=== PATIENT | female | born 1955 | race Caucasian/White ===

== ENCOUNTER 2016-12-28 07:08 | Emergency (ER) | payer MEDICARE, OTHER ==
[~2016-12-28] VITALS: Ht 162.6 cm; Wt 94.0 kg
[~2016-12-28 07:08] MED LIST: ABIL5TAB6 PO; BUPR150T3 PO; BUSP30TA PO; CYAN100017 PO; D3400CAP PO; DIVA500 PO; FLUT1INH; FLUT50SP EACH NARE; FOLI1 PO; HYDR-3533 PO; LEVA750T9 PO; OMEP20CA5 PO; PARO10TA PO; SPIR25TA PO; VENTAER INH
[2016-12-28 07:13] VITALS: BP 119/69; PULSE 84; RESP 17; TEMP 98.2; O2SAT 97
--- NOTE | 2016-12-28 07:43 | PD ---
HPI Chief Complaint: Back/ Neck Pain or Injury Time Seen by Provider: 07:43 Travel History International Travel<30 days: No Contact w/Intl Traveler<30days: No Traveled to known affect area: No History of Present Illness HPI 61-year-old female came to the emergency room with history of tripping and falling backward on her cat at 2 this morning. She landed on her coffee table which she ended up breaking. She was able to get up and go back to the bed. But since then she has severe pain on the left flank and the back aspect. She has trouble taking a deep breath or coughing because of the pain. She did not hit her head. Patient is not on any blood thinners. She does appear to be in discomfort. Vital signs are stable. She drove here by herself. [facility] Past Medical History Narrative Medical List of her past medical, surgical, social and family history was reviewed from the nursing note. Asthma: Yes Bipolar Disorder: Yes Anxiety: Yes Depression: Yes COPD: Yes Diabetes: No Diminished Hearing: No Gastrointestinal Disorders: Yes (STOMACH ULCERS) GERD: Yes Hiatal Hernia: Yes Immunizations Current: No Pneumonia: Yes Menopausal: Yes : 8 Para: 3 Miscarriage: 2 : 3 Past Surgical History Abdominal Surgery: Yes (20# MESENTERIC TUMOR REMOVED WITH INCIDENTAL HYSTERECTOMY/OOPHRECTOMY) Appendectomy: Yes Section: Yes (1984) Eye Surgery: Yes (TUMOR BEHIND R-EYE REMOVED AGE 1) Gynecologic Surgery: Yes Hysterectomy: Yes Joint Replacement: Yes (BILATERAL KNEES) Other Surgery: Yes (GASTRIC BYPASS, HERNIA REPAIR WITH MESH) Social History Alcohol Use: No Tobacco Use: Yes (~1/2 PPD) Substance Use: No Allergies-Medications (Allergen,Severity, Reaction): Coded Allergies: Bee Sting (Verified Allergy, Severe, ANAPHYLAXIS, 12/28/16) Comments List of her allergies reviewed from the nursing note. Reported Meds & Prescriptions Reported Meds & Active Scripts Active Ibuprofen 600 Mg Tab 600 Mg PO Q6H PRN Hydrocodone-Acetaminophen 7.5-300 Mg Tab 1 Tab PO Q6H PRN Reported Latuda (Lurasidone) 20 Mg Tab 20 Mg PO DAILY Paxil (Paroxetine HCl) 40 Mg Tablet 40 Mg PO DAILY Latuda (Lurasidone) 20 Mg Tab 20 Mg PO DAILY Divalproex DR (Divalproex Sodium) 500 Mg Tabdr 500 Mg PO BID Omeprazole 20 Mg Tab 20 Mg PO DAILY Vistaril (Hydroxyzine Pamoate) 25 Mg Cap 25 Mg PO HS Divalproex DR (Divalproex Sodium) 250 Mg Tabdr 250 Mg PO HS Buspirone (Buspirone HCl) 10 Mg Tab 20 Mg PO TID Bupropion HCl ER 24 HR (Bupropion HCl) 150 Mg Tab 150 Mg PO DAILY Narrative Medication List of her home medications reviewed from the nursing note. Review of Systems Except as stated in HPI: all other systems reviewed are Neg Physical Exam Narrative GENERAL: Awake, alert, obese, moderate distress SKIN: Focused skin assessment warm/dry. Contusion on the left flank area with point tenderness. HEAD: Atraumatic. Normocephalic. EYES: Pupils equal and round. No scleral icterus. No injection or drainage. ENT: No nasal bleeding or discharge. Mucous membranes pink and moist. NECK: Trachea midline. No JVD. CARDIOVASCULAR: Regular rate and rhythm. No murmur appreciated. RESPIRATORY: No accessory muscle use. Clear to auscultation. Breath sounds equal bilaterally. GASTROINTESTINAL: Abdomen soft, non-tender, nondistended. Hepatic and splenic margins not palpable. MUSCULOSKELETAL: No obvious deformities. No clubbing. No cyanosis. No edema. No point tenderness or step-offs on the spine palpation. NEUROLOGICAL: Awake and alert. No obvious cranial nerve deficits. Motor grossly within normal limits. Normal speech. PSYCHIATRIC: Appropriate mood and affect; insight and judgment normal. Data Data Last Documented VS Vital Signs Date Time Temp Pulse Resp B/P Pulse Ox O2 Delivery O2 Flow Rate FiO2 12/28/16 07:13 98.2 84 17 119/69 97 Orders Acetamin-Hydrocod 325-5 Mg (Reseda 5-325 (12/28/16 08:00) Ibuprofen (Motrin) (12/28/16 08:00) Urinalysis - C+S If Indicated (12/28/16 07:49) Ribs, Uni (W/Exp Cxr-Min 3vw) (12/28/16 ) Ct Thorax/ Chest Wo Iv Contras (12/28/16 ) Ct Abd/Pel W/O Iv Contrast (12/28/16 ) Resp Incentive Spirometry (12/28/16 ) Labs Laboratory Tests Test 12/28/16 07:59 Urine Collection Type CLEAN CATCH Urine Color YELLOW Urine Turbidity CLEAR Urine pH 5.5 Urine Specific Ebony 1.019 Urine Protein NEG mg/dL Urine Glucose (UA) NEG mg/dL Urine Ketones 15 mg/dL Urine Occult Blood LARGE Urine Nitrite NEG Urine Bilirubin NEG Urine Leukocyte Esterase NEG Urine RBC 15-19 /hpf Urine WBC 3-5 /hpf Urine Squamous Epithelial > 8 /hpf Cells Urine Bacteria OCC /hpf Microscopic Urinalysis Comment CULT NOT INDICATED Urine Collection Time 07:59 MDM Medical Decision Making Medical Screen Exam Complete: Yes Emergency Medical Condition: Yes Medical Record Reviewed: Yes Differential Diagnosis Rib fracture, renal injury, lung contusion, pneumothorax Narrative Course 8:20 AM I have ordered chest x-ray and rib series. Awaiting for the x-rays to be done and resulted. I've also ordered a UA to look for any hematuria since the bruising is right on top of the left kidney. I medicated her for pain but because I'm giving her hydrocodone of asked her to call somebody come and pick her up. She is working on that. 8:51 AM UA came back with large amount of blood. I have ordered a CT scan of her chest and abdomen and pelvis. Thing for the CT to be done and resulted. 10:[address] scan shows some incidental finding but as a result of the injury patient has left posterior mildly displaced 10th, 11th and 12th rib fracture. Patient seems to be in somewhat of a pain control when she doesn't move too much. I just went back and reassessed her and told her the nature of her injuries. Also explained to her regarding the recommendations and precaution she should use at home. Patient understood and I answered all her questions to the best of my ability. I'm comfortable discharging her home at this point. Procedures EKG Prior to Arrival: No Diagnosis Primary Impression: Fall Qualified Code: W19.XXXA - Fall, initial encounter Additional Impressions: Ribs, multiple fractures Qualified Code: S22.42XA - Closed fracture of multiple ribs of left side, initial encounter Needs smoking cessation education Referrals: Primary Care Physician 3 days Additional Instructions: Please return to the ER if the condition worsens or any other new concerns. Otherwise follow-up with your primary care on Sunday. Use the medication given to you for pain control. Do not drive or operate heavy machinery while using the pain medication since they will make you groggy. Brace your chest with a cushion or a pillow every time you cough or sneeze. If he suddenly get short of breath you need to come to the emergency room immediately. Use the incentive spirometer given to you every 15-20 minutes. The more frequently use less would be the chances for you to develop pneumonia. Your CAT scan of the abdomen had some incidental findings. You have a 3.5 cm x 2.5 cm tumor on your left adrenal gland. You also have a 2.5 cm density in your liver. Please have your primary care repeat a CAT scan in 6-12 months outpatient. Med/Other Pt SpecificInfo: Prescription(s) given Scripts Ibuprofen 600 Mg [id number] Mg PO Q6H PRN (Pain/Inflammation) #40 TAB Ref 0 Prov:Frank Pires MD 12/28/16 Hydrocodone-Acetaminophen 7.5-300 Mg Tab1 Tab PO Q6H PRN (PAIN) #20 TAB Ref 0 Prov:Frank Pires MD 12/28/16 Disposition: 01 DISCHARGE HOME Condition: Stable Frank Pires MD Dec 28, 2016 07:43
[2016-12-28] MEDS ORDERED: OMEP20TA PO (07:50)
[2016-12-28] MEDS ORDERED: LURA20TA PO (07:50)
[2016-12-28] MEDS ORDERED: DIVA250T PO (07:50)
[2016-12-28] MEDS ORDERED: BUSP10TA PO (07:50)
[2016-12-28] MEDS ORDERED: BUPR150T3 PO (07:50)
[2016-12-28] MEDS ORDERED: VIST25CA PO (07:50)
[2016-12-28] MEDS ORDERED: PAXI40TA8 PO (07:50)
[2016-12-28] MEDS ORDERED: DIVA500T PO (07:50)
[2016-12-28] MEDS ORDERED: IBUPROFEN 600 MG TAB PO ONE (08:00)
[2016-12-28] MEDS ORDERED: ACETAMINOPHEN/HYDROcodone 325 MG/5 MG TAB PO ONE (08:00)
[2016-12-28 08:14] LABS: BLOOD, URINE LARGE (NEG); GLUCOSE,URINE NEG (NEG); KETONE, URINE 15 mg/dL (NEG); NITRITE,URINE NEG (NEG); PH, URINE 5.5 (5.0-8.5)
[2016-12-28 08:25] LABS: METHOD OF COLLECTION CLEAN CATCH; RBC, URINE 15-19 /hpf (0-3); SQUAMOUS EPITHELIAL CELL URINE > 8 /hpf (0-5); URINE COLOR YELLOW (YELLW/STRAW)
[2016-12-28 08:26] LABS: BACTERIA, URINE OCC /hpf; COMMENT (UR) CULT NOT INDICATED; CULTURE IF INDICATED CULT NOT INDICATED
--- NOTE | 2016-12-28 09:20 | RADRPT ---
EXAM DATE/TIME: 12/28/2016 08:23 [facility] COMPARISON: No previous studies available for comparison. INDICATIONS : Left posterior rib pain post fall onto corner of coffee table. MEDICAL HISTORY : Chronic obstructive pulmonary disease. Hiatal hernia. Ulcers. Asthma. Pneumonia. SURGICAL HISTORY : Appendectomy. Gastric bypass. section. Hernia repair. Bilateral knee replacements. Hysterect edith. ENCOUNTER: Initial ACUITY: 1 day PAIN SCORE: 8/10 LOCATION: Left flank ribs FINDINGS: Multiple views of the left ribs were performed. There is no evidence of displaced fracture. No dest ructive lesions or areas of periosteal thickening are seen. Expiratory view of the chest is negative for pneumothorax. Air space disease characteristic of mild atelectasis is seen in the left base. Th e mediastinal structures are midline. CONCLUSION: Mild left basilar atelectasis. No evidence of displaced rib fracture. Roque Costa MD on December 28, 2016 at 9:16 Board Certified Radiologist. This report was verified electronically.
--- NOTE | 2016-12-28 09:49 | RADRPT ---
EXAM DATE/TIME: 12/28/2016 08:45 [facility] COMPARISON: CT ABDOMEN & PELVIS W CONTRAST, November 18, 2015, 17:47. INDICATIONS : Trauma. Left flank and back pain post fall. ORAL CONTRAST: No oral contrast ingested. RADIATION DOSE: 16.26 CTDIvol (mGy) ; Combined studies - Thorax/Abdomen/Pelvis MEDICAL HISTORY : Hernia, hiatal. Gastroesophageal reflux disease. Chronic obstructive pulmonary disease. SURGICAL HISTORY : Appendectomy. section.Hysterectomy.Mesenteric tumor. Oophorectomy. ENCOUNTER: Initial ACUITY: 1 day PAIN SCALE: 9/10 LOCATION: Left flank back TECHNIQUE: Volumetric scanning of the abdomen and pelvis was performed. Using automated exposure control and ad justment of the mA and/or kV according to patient size, radiation dose was kept as low as reasonably achievable to obtain optimal diagnostic quality images. DICOM format image data is available electro nically for review and comparison. FINDINGS: LOWER LUNGS: The visualized lower lungs are clear. LIVER: There is a stable 2.5 cm low density lesion within the left lobe of the liver near the dome. There i s no dilation of the biliary tree. No calcified gallstones. SPLEEN: Normal size without lesion. PANCREAS: Within normal limits. KIDNEYS: Normal in size and shape. There is no mass, stone, or hydronephrosis. ADRENAL GLANDS: There is a 3.4 x 2.6 cm low density left adrenal mass consistent with probable adrenal adenoma. VASCULAR: There is no aortic aneurysm. BOWEL/MESENTERY: The stomach, small bowel, and colon demonstrate no acute abnormality. There is no free intraperitone al air or fluid. ABDOMINAL WALL: Midline ventral abdominal wall bulge is noted containing a portion of the transverse colon. RETROPERITONEUM: There is no lymphadenopathy. BLADDER: No wall thickening or mass. REPRODUCTIVE: Within normal limits. INGUINAL: There is no lymphadenopathy or hernia. MUSCULOSKELETAL: Within normal limits for patient age. CONCLUSION: 1. No intra-abdominal trauma. 2. 3.4 x 2.6 cm left adrenal nodule changes with probable adrenal adenoma. 3. Stable low density lesion within the left hepatic lobe near the dome measuring 2.5 cm which is non specific. 4. Midline ventral abdominal wall bulge containing a portion of transverse colon. Isiah Galindo MD on December 28, 2016 at 9:40 Board Certified Radiologist. This report was verified electronically.
--- NOTE | 2016-12-28 10:00 | RADRPT ---
EXAM DATE/TIME: 12/28/2016 08:45 [facility] COMPARISON: No previous studies available for comparison. INDICATIONS : Trauma. Fall. Left chest and back pain. RADIATION DOSE: 16.26 CTDIvol (mGy) ; Combined studies - Thorax/Abdomen/Pelvis MEDICAL HISTORY : Hernia, hiatal. Chronic obstructive pulmonary disease. Gastroesophageal reflux disease. SURGICAL HISTORY : Hysterectomy. section. Appendectomy. Mesenteric tumor. ENCOUNTER: Initial ACUITY: 1 day PAIN SCALE: 9/10 LOCATION: Left chest back TECHNIQUE: Volumetric scanning of the chest was performed. Using automated exposure control and adjustment of t he mA and/or kV according to patient size, radiation dose was kept as low as reasonably achievable to obtain optimal diagnostic quality images. DICOM format image data is available electronically for r eview and comparison. FINDINGS: There are acute mildly displaced fractures involving the posterior aspects of the left tenth, elevent h, and twelfth ribs. Posterior bibasilar atelectasis is noted. Minimal bullous change is noted with in the right upper lung field. No pneumothorax is noted. The heart is enlarged. Coronary artery pal cifications are noted. No mediastinal hematoma is noted. No mediastinal, hilar, or axillary lymphad enopathy is noted. No pleural effusion is noted. A left adrenal nodule is noted and will be described in detail in the CT of the abdomen report. Degenerative changes and scoliosis of the thoracic spine are noted. CONCLUSION: 1. Acute mildly displaced fractures involving the posterior aspects of the left tenth, eleventh and t welfth ribs. 2. Posterior atelectatic changes within the lung bases. 3. Bullous change within the right upper lung. 4. Cardiomegaly and coronary artery calcifications. 5. Left adrenal nodule will be described in detail in the CT of the abdomen. 6. Degenerative changes and scoliosis of the thoracic spine. Isiah Galindo MD on December 28, 2016 at 9:34 Board Certified Radiologist. This report was verified electronically.
[2016-12-28] MEDS ORDERED: HYDR-2376 PO (10:33)
[2016-12-28] MEDS ORDERED: IBUP-232 PO (10:33)
== END 2016-12-28 10:59 | disposition home or self-care (01) ==
LOC: PHED 07:08
DX: S22.42XA Multiple fractures of ribs, left side, initial encounter for closed fracture (principal); W01.0XXA Fall on same level from slipping, tripping and stumbling without subsequent striking against object, initial encounter; J44.9 Chronic obstructive pulmonary disease, unspecified; K21.9 Gastro-esophageal reflux disease without esophagitis; Z87.19 Personal history of other diseases of the digestive system
CPT/HCPCS: 71101; 71250; 74176; 81001; 94150; 99285

== ENCOUNTER 2017-02-13 10:29 | Day surgery (SDC) | payer MEDICARE, OTHER ==
[~2017-02-13] VITALS: Ht 162.6 cm; Wt 87.7 kg
[~2017-02-13 10:29] MED LIST changes: -ABIL5TAB6 PO; +BUSP10TA PO; -BUSP30TA PO; -CYAN100017 PO; -D3400CAP PO; +DIVA250T PO; -DIVA500 PO; +DIVA500T PO; -FLUT1INH; -FLUT50SP EACH NARE; -FOLI1 PO; +HYDR-2376 PO; -HYDR-3533 PO; +IBUP-232 PO; -LEVA750T9 PO; +LURA20TA PO; -OMEP20CA5 PO; +OMEP20TA PO; -PARO10TA PO; +PAXI40TA8 PO; -SPIR25TA PO; -VENTAER INH; +VIST25CA PO
[2017-02-13] MEDS ORDERED: ASPIRIN 81 MG CHEW TAB PO SCH (11:30)
[2017-02-13 11:34] VITALS: BP 143/81; PULSE 72; RESP 18; TEMP 98.2; O2SAT 96
[2017-02-13 11:40] LABS: AUTOMATED NEUTROPHIL # 2.8 TH/MM3 (1.8-7.7); BASOPHIL # 0.1 TH/MM3 (0-0.2); BASOPHIL % 1.1 % (0.0-2.0); EOSINOPHIL # 0.1 TH/MM3 (0-0.4); EOSINOPHIL % 1.8 % (0.0-4.0); HEMATOCRIT 39.8 % (35.0-46.0); HEMO FLAGS DIFF FINAL; LYMPH % 46.7 % (9.0-44.0); MEAN CELL VOLUME 90.5 FL (80.0-100.0); MEAN CORPUSCULAR HEMOGLOBIN 31.3 PG (27.0-34.0); MEAN CORPUSCULAR HGB CONC 34.6 % (32.0-36.0); MONO % 6.9 % (0.0-8.0); NEUT % 43.5 % (16.0-70.0); PLATELET COUNT 215 TH/MM3 (150-450); RED BLOOD COUNT 4.39 MIL/MM3 (4.00-5.30); WHITE BLOOD COUNT 6.4 TH/MM3 (4.0-11.0)
[2017-02-13] MEDS ORDERED: ABIL5TAB7 PO (11:47)
[2017-02-13] MEDS ORDERED: DEPA500T3 PO (11:47)
[2017-02-13] MEDS ORDERED: VENTAER INH (11:47)
[2017-02-13 11:52] LABS: APTT (PATIENT) 28.5 SEC (24.3-30.1); INTERNATIONAL NORMALIZED RATIO 0.9 RATIO; PROTHROMBIN TIME - PATIENT 10.3 SEC (9.8-11.6)
[2017-02-13 12:05] LABS: BICARBONATE 29.1 MEQ/L (21.0-32.0)
[2017-02-13] MEDS ORDERED: HEPARIN-NS/PF INJ 500 ML ONE (12:06)
[2017-02-13 12:18] LABS: POTASSIUM 5.4 MEQ/L (3.5-5.1)
[2017-02-13] MEDS ORDERED: MIDAZOLAM HCL 2 MG/2 ML VIAL ONE (12:35)
--- NOTE | 2017-02-13 13:29 | EKG ---
Date Performed: 02/13/2017 Time Performed: 11:42:24 PTAGE: 61 years EKG: Sinus rhythm . Normal ECG Compared to prior tracing no significant change PREVIOUS TRACING : 05/09/2003 22.59 DOCTOR: Javon Esquivel Interpretating Date/Time 02/13/2017 13:28:45
[2017-02-13] MEDS ORDERED: BACITRACIN OINT 0.9 GM PKT TOP ONE (13:30)
[2017-02-13] MEDS ORDERED: SODIUM CHLORIDE 0.9% FLUSH 10 ML FLUSH PRN (13:30)
[2017-02-13] MEDS ORDERED: MISC INFORMATION XX ONE (13:30)
--- NOTE | 2017-02-13 13:39 | CATHPROC ---
[employer] HIS Report Study Information Study Number Admission Scheduled Start Study Start [id number] Feb 13 2017 10:29AM 02/13/2017 Feb 13 2017 12:14PM [facility] Cardiac Catheterization Admit Source Facility Department Other [facility] - Data Management Associate Physician and Clinical Staff Initial Zoran [employer] CookSofia Saravia RN Circulator Lawler, Barbara, RN Other Skyler VAZQUEZ, Kayode Recorder Mary Sinha RCIS TECH2 Recorder Sandra Low,(R) Scrub Will Kaba RCIS(BS) Procedures Performed Procedure Location (Site) Vessel Name Coronary Angiograms LCA Left Coronary Coronary Angiograms RCA Right Coronary LV Gram-hand inj. LV LV Ventricle Equipment Time Dish Carrier Description Size Mfg Part Number Used/Scraped CATHETER, FR5 SWAN CHANTAL 12:25 SILVA MONGE FR 5 [id number] *[id number] Used MONITOR TRANSDUCER, TRUWAVE [id number] 13:16 SILVA MONGE * Used W/STOCKCOCK *[id number] [id number] *[id number] *[id number] 13:16 MEDLINE IND[employer]RIES PACK, CCL CUSTOM * Used *[id number] 13:16 Haileo PACER PEN, SKIN DUAL W/ RULER * Used *[id number] 13:09 Propel IT MEDICAL SHEATH, FR4.5 PRELUDE 11CM FR 4.5 Used [id number] 13:11 Propel IT MEDICAL SHEATH, FR5.5 PRELUDE 11CM FR 5 [id number] Used [id number] 13:16 NAMIC MANIFOLD, 4 PORT * Used *[id number] 13:16 NYCOMED OMNIPAQUE, 350 MG, 150ML 150ML [id number] Used [id number] 13:16 [email or web address] BLANKET,WARM AIR CCL * Used *[id number] History: Current Medications Medication Dosage/Unit Route Frequency Last Date/Time Taken ASA History: Allergies Allergy Reaction Bee Sting History: Risk Factors Family History of Hypertension Dyslipidemia Previous IA Previous Heart Failure Premature CAD No Yes Yes No No Prior Valve Prior PCI Prior CABG Surgery No No No Cerebrovascular Peripheral Artery Chronic Lung On Dialysis Diabetes Disease Disease Disease No No No Yes No History: Symptoms/Diagnosis Selection Items Chest pain History: Stress Tests Stress or Imaging Studies Performed Yes Standard Exercise Stress Test No Stress Echo No Stress Test SPECT Stress Test SPECT Result Stress Test SPECT Ischemia Risk/Extent Yes Positive Intermediate Stress Test CMR No Cardiac CTA Coronary Calcium Score No No History: Other Current Smoker Method Packs a Day Years Used Pack Years Yes Cigarettes 1 50 50 Labs Hgb (g/dl) Hct (%) WBC (l/cumm) Platelets (thousands) 11.60-17.00 35.00-51.00 4.00-11.00 150.00-450.00 13.8 39.8 6.4 215 Glucose (mg/dl) BUN (mg/dl) Creatinine (mg/dl) BUN:Creatinine (1:x) 74.00-106.00 7.00-18.00 0.50-1.30 10.00-20.00 72 6 0.5 12 Na (meq/l) K (meq/l) Cl (meq/l) CO2 (mmol/L) Ca (mg/dl) 136.00-145.00 3.50-5.10 98.00-107.00 21.00-32.00 8.50-10.10 134 5.4 99 29.1 8.1 INR (PTT:PT) 0.90-1.10 0.9 CPK-MB (ng/ML) 0.50-3.60 Not Drawn Medication Medication Total Dose (Bolus/Oral) Medication Total Dosage/Unit 1% XYLOCAINE 20 mL Medications (Bolus/Oral) Medication Time Given Dosage/Unit Administered By Reason 1% XYLOCAINE 02/13/2017 1:06:04 PM 20 mL Zoran Valencia Patient arrived on 20 mL 1% XYLOCAINE given by Zoran Valencia in Right Groin via Subcutaneous. Orde red by Zoran Valencia. Medication (Drip) Medication Time Given Dosage/Unit Concentration/Unit Diluent (ml) Solution IV Solutions 02/13/2017 12:27:37 PM 0 mL (IV) 500 NaCl .9 Patient arrived on IV Solutions in Right Radial via Peripheral IV. Pump/Drip Flow = 20 ml/hr using Na Cl .9. Initial Case Assessment Cardiovascular HR Rhythm NIBP Chest Pain 72 nsr 134/78 0 Edema Present Skin color Skin None Normal Warm Circulatory - Right Pulses Dorsalis Pedis Femoral 3 2 Scale (0,1,2,3,4,d) Circulatory - Left Pulses Dorsalis Pedis Femoral 3 2 Scale (0,1,2,3,4,d) Neurological State Oriented to time-place- Alert Moves all extremities person Respiration - General Respiration Rate SpO2 (%) (B/min) 19 97 Final Case Assessment Cardiovascular HR Rhythm NIBP Chest Pain 97 nsr 147/76 0 Edema Present Skin color Skin None Normal Warm Circulatory - Right Pulses Dorsalis Pedis Femoral 3 2 Scale (0,1,2,3,4,d) Circulatory - Left Pulses Dorsalis Pedis Femoral 3 2 Scale (0,1,2,3,4,d) Neurological State Oriented to time-place- Alert Moves all extremities person Respiration - General Respiration Rate SpO2 (%) (B/min) 25 93 Chronological Log Time Study Chronological Log 12:14:26 Patient arrived via Bed. 12:16:01 Patient Name, D.O.B, / Armband Verified By R.N. 12:16:04 Consent signed by the physician and the patient and verified by the Data Management Associate staff. 12:16:05 Pre-op and post- op instructions given; patient acknowledges understanding of instructions. 12:16:06 Verbal Stimulation=2 Physical Stimulation=2 Airway=2 Respiration=2 TOTAL=8. (0=absent, 1=li mited, 2=present) Vitals capture started with the following parameters, Patient=Adult, Interval=5 min, Initial Pr hzdpxb=582 mmHg, 12:20:30 Deflation Rate=5 mmHg, Cuff placed on Right Arm 12:20:49 Patient has been NPO for More than 6Hrs. 12:20:52 Skin Breakdown- blister on right middle finger 12:20:53 Patient Warmer Placed on the Table. 12:20:58 A # 20 IV was noted in the Hand (right). Grade = 0 12:21:38 HR=69 bpm, WEOV=675/75 mmhg, SpO2=98.0 %, Resp=7 B/min 12:26:11 HR=75 bpm, HGUD=395/78 mmhg, SpO2=97.0 %, Resp=12 B/min 12:27:37 Patient arrived on IV Solutions in Right Radial via Peripheral IV. Pump/Drip Flow = 20 ml/h r using NaCl .9. 12:29:01 History and physical on the chart or being dictated. Assessment: Initial Case, HR=72 BPM, Rhythm=nsr, FDCU=739/78 mmhg, Chest Pain=0, Edema=None, Co jaylyn=Normal, Skin = Warm Right Pulses: Martinez Ped=3, Femoral=2 12:29:07 Left Pulses: Martinez Ped=3, Femoral=2 Neurological: State=Alert, Ox3, LIU Respiration: Resp=19 B/min, SpO2=97 % 12:30:45 Bilateral groins prepped with 2% chlorhexidine, and draped after a 3 min. waiting time. 12:31:12 HR=78 bpm, CAMH=707/74 mmhg, SpO2=97.0 %, Resp=18 B/min 12:32:10 Pressure channel 1 zeroed. 12:33:37 MD paged 12:35:07 Reference ECG taken 12:36:13 HR=77 bpm, VKGL=729/78 mmhg, SpO2=97.0 %, Resp=18 B/min 12:37:07 MD responded 12:41:12 HR=82 bpm, UOGE=946/76 mmhg, SpO2=96.0 %, Resp=14 B/min 12:46:13 HR=76 bpm, SHWE=599/80 mmhg, SpO2=95.0 %, Resp=13 B/min 12:51:12 HR=88 bpm, XYFH=870/78 mmhg, SpO2=95.0 %, Resp=16 B/min 12:56:15 HR=81 bpm, SVSZ=602/71 mmhg, SpO2=96.0 %, Resp=18 B/min 13:01:15 MD arrived. 13:01:16 HR=79 bpm, UCPD=190/75 mmhg, SpO2=94.0 %, Resp=17 B/min Time Out. Correct patient, correct procedure,correct physician, ,power injector loaded or not l oaded with contrast with 13:05:35 surgical team present. Time Out Concurred by MD, individual staff and UTILITY TENDER CARDING in procedure 13:06:01 Case Start Patient arrived on 20 mL 1% XYLOCAINE given by Zoran Valencia in Right Groin via Subcutaneous . Ordered by 13:06:04 Zoran Valencia. 13:06:52 HR=85 bpm, QFCN=264/84 mmhg, SpO2=96.0 %, Resp=9 B/min 13:07:06 Access site was Right Femoral Artery. 13:07:27 A SHEATH, FR4.5 PRELUDE 11CM FR 4.5 was advanced into the Fem Art (right) using the Percuta neous technique. 13:09:18 Access site was Right Femoral Vein. 13:09:42 A SHEATH, FR5.5 PRELUDE 11CM FR 5 was advanced into the Fem Vein (right) using the Percutan eous technique. 13:09:50 Saturation: Site=Ao (Aorta) , O2=95.7 %, Hgb=13.8 gm/dl, Condition=Condition 1. Used in pal culation. 13:10:25 A CATHETER, FR5 SWAN CHANTAL MONITOR FR 5 was inserted via Fem Vein (right) Recorded Pressure: PCW, HR=85, Condition=Condition 1 13:10:55 (Pulmonary Capillary Wedge) PCW 126 13:11:18 HR=82 bpm, MTMF=945/76 mmhg, SpO2=95.0 %, Resp=16 B/min Recorded Pressure: MPA, HR=85, Condition=Condition 1 13:11:20 (Main Pulmonary Artery) MPA 3020 13:11:38 Saturation: Site=PA (Pulmonary Artery) , O2=79.8 %, Hgb=13.8 gm/dl, Condition=Condition 1. Used in calculation. Recorded Pressure: RV, HR=86, Condition=Condition 1 13:12:31 (Right Ventricle) RV 33/0/4 Recorded Pressure: RA, HR=81, Condition=Condition 1 13:12:52 (Right Atrium) RA 7/5/3 13:13:49 Saturation: Site=RA (Right Atrium) , O2=80.6 %, Hgb=13.8 gm/dl, Condition=Condition 1. Used in calculation. 13:14:25 Converse Chantal Catheter Removed 13:14:29 A JR 4.0 INFINITI CATHETER FR 4 was advanced over a wire. contrast was used for injections. 13:15:59 The LV was manually injected with 10 cc's and visualized. OMNIPAQUE, 350 MG, 150ML 150ML us ed. Recorded Pressure: LV, Ao, FH=647, Condition=Condition 1 13:16:06 (Left Ventricle) LV 147/11/13, (Aorta) Ao 148/77/110 13:16:09 HR=90 bpm, FKFO=302/82 mmhg, SpO2=96.0 %, Resp=22 B/min 13:17:16 The RCA was injected and visualized at various angles. OMNIPAQUE, 350 MG, 150ML 150ML use d. 13:17:34 Catheter was removed A JL 4.0 INFINITI CATHETER FR 4 was advanced over a wire. OMNIPAQUE, 350 MG, 150ML 150ML was u sed for 13:17:36 injections. 13:18:05 The LCA was injected and visualized at various angles. OMNIPAQUE, 350 MG, 150ML 150ML use d. 13:19:19 Catheter was removed 13:19:43 Case End 13:20:15 Sterile dressing applied to site 13:20:17 No case complications noted. 13:20:19 Cine recording checked. 13:20:26 Bedside Report will be given. 13:21:49 HR=97 bpm, LIXB=743/76 mmhg, SpO2=93.0 %, Resp=25 B/min 13:30:[address] [facility] Assessment: Final Case, HR=97 BPM, Rhythm=nsr, RUKI=677/76 mmhg, Chest Pain=0, Edema=None, Col or=Normal, Skin = Warm Right Pulses: Martinez Ped=3, Femoral=2 13:30:51 Left Pulses: Martinez Ped=3, Femoral=2 Neurological: State=Alert, Ox3, LIU Respiration: Resp=25 B/min, SpO2=93 % 13:34:11 A Left and Right Heart Cath was performed. End Study - Contrast Media Used In Study Contrast Total Opened (mL) Total Used (mL) Total Wasted (mL) Omnipaque 50 50 0 End Study - Maximum Contrast Load Max Contrast Load (mL) 877.3 End Study - Radiation Exposure Fluoro Time (minutes) 2.7 End Study - Patient Disposition Complications Transferred To Telemetry Bed
[2017-02-13] MEDS ORDERED: IOHEXOL 350 MG/ML 50 ML BTL (for Cath Lab) OTHER ONE (15:31)
[2017-02-13] MEDS ORDERED: SODIUM CHLORIDE 0.9% FLUSH 10 ML FLUSH SCH (21:00)
--- NOTE | 2017-02-14 07:41 | MR ---
cc: PRIYA MOORE M.D. DATE: 02/13/2017 PROCEDURE Right heart catheterization, left heart catheterization, left ventriculography, coronary angiography. INDICATION Unstable angina, [place] Cardiovascular Society class 3 angina, chest pain on exercise several test, pulmonary hypertension, coronary artery disease, tobacco use, multiple cardiac risk factors. DETAILS OF PROCEDURE The patient was brought to the cardiac catheterization laboratory, prepped and draped in the usual sterile fashion. 10 cc of 1% lidocaine was used to locally anesthetize the right common femoral artery and right common femoral vein. A 4-Uzbek sheath was successfully placed in the right common femoral artery. A 5-Uzbek sheath was placed in the right common femoral vein. Right heart catheterization was performed first with the following findings. HEMODYNAMICS Pulmonary capillary wedge pressure 12/8-6. PA pressure 29/6-18. RV pressure 33/0-4. RA pressure 7/5-3. Sat 95.7% on room air in the femoral artery, 79.8% in the pulmonary artery and 80.6% in the right atrium. Cardiac output 8.1 liters per minute. Cardiac index 4.2 liters per minute per meter squared. LEFT VENTRICULOGRAPHY Left heart catheterization was then performed with 4-Uzbek JR4 and JL4 catheters with the following findings: LV pressure 130/10-15. Ejection fraction 65%. CORONARY ANGIOGRAPHY The right coronary artery is a large and dominant vessel, probably 4.5 to 5 mm in diameter throughout its entire length. There is mild disease in the proximal segment up to 10% angiographically. The left main coronary has mild disease in the distal segment up to 5-10% angiographically. The left circumflex is a medium size vessel with 20-30% in the proximal segment. The first obtuse marginal vessel comes off the mid to distal AV groove. There is a medium size ramus intermedius vessel with no significant disease angiographically. The LAD is transapical, tortuous in the midsegment, has no significant disease angiographically. The first diagonal artery is a medium to large size vessel which bifurcates and has no significant disease angiographically. CONCLUSIONS 1. Normal right heart catheterization as detailed above. 2. Normal LV systolic function, ejection fraction 65%. 3. Mild two-vessel coronary artery disease in a right dominant system as detailed above. RECOMMENDATIONS Recommend medical management of coronary artery disease with cardiac risk factor modification. MD MERLY Whittington/CARMEN /1:24 PM /7:25 AM
== END 2017-02-13 16:42 | disposition home or self-care (01) ==
LOC: HDOC 10:29 → HDIC 10:31 → HDOC 16:42
PROVIDERS: ATTEND Internal Medicine Interventional Cardiology
DX: I25.110 Atherosclerotic heart disease of native coronary artery with unstable angina pectoris (principal); I27.2 Other secondary pulmonary hypertension; J43.9 Emphysema, unspecified; F41.9 Anxiety disorder, unspecified; F32.9 Major depressive disorder, single episode, unspecified; F17.210 Nicotine dependence, cigarettes, uncomplicated; Z79.82 Long term (current) use of aspirin; Z79.51 Long term (current) use of inhaled steroids; Z79.899 Other long term (current) drug therapy
CPT/HCPCS: 80048; 82810; 85025; 85610; 85730; 93005; 93453; C1769; C1893; J1644; J2250; J3010; Q9967

== ENCOUNTER 2017-11-24 20:54 | Emergency (ER) | payer MEDICARE, OTHER ==
[~2017-11-24] VITALS: Ht 162.6 cm; Wt 82.0 kg
[~2017-11-24 20:54] MED LIST changes: +ABIL5TAB14 PO; +DEPA500T3 PO; -DIVA250T PO; -DIVA500T PO; -HYDR-2376 PO; -IBUP-232 PO; -LURA20TA PO; -OMEP20TA PO; -PAXI40TA8 PO; +PAXI40TA9 PO; +VENTAER INH
[2017-11-24 20:57] VITALS: BP 165/73; PULSE 83; RESP 16; TEMP 98.3; O2SAT 97
[2017-11-24] MEDS ORDERED: VALP250C PO (21:26)
[2017-11-24 21:45] VITALS: RESP 17; O2SAT 96
[2017-11-24] MEDS ORDERED: SODIUM CHLOR 0.9% 1000 ML INJ 1,000 ML IV SCH (21:56)
[2017-11-24] MEDS ORDERED: ONDANSETRON HCL 4 MG/2 ML VIAL IVP ONE (22:00)
[2017-11-24] MEDS ORDERED: SODIUM CHLORIDE 0.9% FLUSH 10 ML FLUSH IV FLUSH PRN (22:00)
[2017-11-24 22:22] LABS: BILIRUBIN, URINE NEG (NEG); BLOOD, URINE MOD (NEG); GLUCOSE,URINE NEG (NEG); KETONE, URINE NEG (NEG); NITRITE,URINE NEG (NEG); PH, URINE 6.5 (5.0-8.5); URINE COLOR YELLOW (YELLW/STRAW); URINE LEUKOCYTE ESTERASE NEG (NEG)
[2017-11-24 22:23] LABS: AUTOMATED NEUTROPHIL # 5.6 TH/MM3 (1.8-7.7); BASOPHIL # 0.2 TH/MM3 (0-0.2); EOSINOPHIL # 0.1 TH/MM3 (0-0.4); EOSINOPHIL % 0.7 % (0.0-4.0); HEMOGLOBIN 12.8 GM/DL (11.6-15.3); LYMPH % 35.9 % (9.0-44.0); LYMPHOCYTE # 3.6 TH/MM3 (1.0-4.8); MEAN CELL VOLUME 90.3 FL (80.0-100.0); MEAN CORPUSCULAR HEMOGLOBIN 30.5 PG (27.0-34.0); MEAN CORPUSCULAR HGB CONC 33.8 % (32.0-36.0); MEAN PLATELET VOLUME 8.3 FL (7.0-11.0); MONO % 6.3 % (0.0-8.0); MONOCYTE # 0.6 TH/MM3 (0-0.9); NEUT % 55.1 % (16.0-70.0); PLATELET COUNT 310 TH/MM3 (150-450); RED CELL DISTRIBUTION WIDTH 13.1 % (11.6-17.2); WHITE BLOOD COUNT 10.1 TH/MM3 (4.0-11.0)
[2017-11-24 22:29] LABS: RBC, URINE 15-19 /hpf (0-3); SQUAMOUS EPITHELIAL CELL URINE 0-5 /hpf (0-5); WBC, URINE 0-2 /hpf (0-5)
[2017-11-24 22:32] LABS: CHLORIDE 98 MEQ/L (98-107); SODIUM (NA) 135 MEQ/L (136-145)
[2017-11-24 22:35] LABS: CALCIUM 9.4 MG/DL (8.5-10.1)
[2017-11-24 22:36] LABS: ALBUMIN 3.7 GM/DL (3.4-5.0); BICARBONATE 28.2 MEQ/L (21.0-32.0); BLOOD UREA NITROGEN 4 MG/DL (7-18); GLUCOSE,RANDOM 95 MG/DL (74-106)
[2017-11-24 22:39] LABS: ALT (GPT) 17 U/L (10-53); AST (GOT) 15 U/L (15-37); GLOMERULAR FILTRATION RATE 124 ML/MIN (>89)
[2017-11-24 22:40] LABS: TOTAL BILIRUBIN ADULT 0.8 MG/DL (0.2-1.0); TOTAL PROTEIN 7.6 GM/DL (6.4-8.2)
[2017-11-24 22:42] LABS: ALKALINE PHOSPHATASE 120 U/L (45-117)
[2017-11-24] MEDS ORDERED: IOHEXOL 350 MG/ML 10 ML VIAL (for RAD DIAG) IVCONTRAST ONE (22:58)
--- NOTE | 2017-11-24 23:08 | RADRPT ---
EXAM DATE: 11/24/2017 10:57 PM EDT AGE/SEX: 62 years / Female INDICATIONS: Lower abdominal pain, nausea, vomiting, diarrhea and fever. CLINICAL DATA: This is the patient's initial encounter. Patient reports that signs and symptoms have been present for 3 days and indicates a pain score of 3/10. MEDICAL/SURGICAL HISTORY: Chronic obstructive pulmonary disease. Hiatal hernia. Gastroesophag eal reflux disease. Asthma. Gastric bypass. Appendectomy. section. Hysterectomy. Herni a repair. ORAL CONTRAST: No oral contrast ingested. RADIATION DOSE: 18.80 CTDI (mGy) COMPARISON: [facility], CT ABDOMEN & PELVIS W CONTRAST, 11/18/2015. . TECHNIQUE: Multiple contiguous axial images were obtained through the abdomen and pelvis following b olus infusion of 90 ml Omnipaque 350 (iohexol) nonionic water-soluble contrast as a single exam dos e. No oral contrast ingested. Using automated exposure control and adjustment of the mA and/or kV ac cording to patient size, the radiation dose was kept as low as reasonably achievable to obtain optima l diagnostic quality images. FINDINGS: Left hepatic lobe hemangioma unchanged. The spleen, pancreas, right adrenal gland and kidneys are all within normal limits. 3.1 cm mass again seen of the left adrenal gland, unchanged. Gastric bypass changes are again noted. No obstruction or acute inflammatory changes seen of the morteza rointestinal tract. No free fluid or free air. Surgical changes and mild diastases again noted of the anterior abdominal wall. Abdominal aorta is atherosclerotic. No aneurysm. Trace atelectasis of the visualized lung bases. No acute bony abnormality demonstrated. CONCLUSION: 1. No obstruction, acute inflammatory changes or other acute abnormality demonstrated. 2. Stable chronic findings include hemangioma the left hepatic lobe, presumed adenoma the left adren al gland, atherosclerotic aorta and gastric bypass changes. Electronically signed by: Donavan Wolf MD 11/24/2017 11:07 PM EDT
--- NOTE | 2017-11-24 23:13 | PD ---
HPI Chief Complaint: GI Complaint Time Seen by Provider: 23:11 Travel History International Travel<30 days: No Contact w/Intl Traveler<30days: No Traveled to known affect area: No History of Present Illness HPI 62-year-old female presents to the emergency department for 1 day of nausea vomiting diarrhea and intermittent crampy abdominal pain. Patient states she ate pepper chicken yesterday afternoon felt like it was normal on tainted food and then last evening started having symptoms of nausea and vomiting and intermittent watery diarrhea. Patient states she has had poor oral intake as what she is attempted to eat she has vomited. No hematemesis no coffee-ground emesis no melena hematochezia. Temperature elevation of 100F. Patient has had previous gastric bypass and herniorrhaphy repair. Patient is not diabetic. PFSH Past Medical History Asthma: Yes Bipolar Disorder: Yes Anxiety: Yes Depression: Yes Cancer: No Cardiovascular Problems: Yes (ANGINA) Chest Pain: No COPD: Yes Diabetes: No Diminished Hearing: No Gastrointestinal Disorders: Yes (STOMACH ULCERS) GERD: Yes Glaucoma: No Headaches: Yes Hepatitis: No Hiatal Hernia: Yes Hypertension: No Respiratory: Yes (COPD) Integumentary: No Immunizations Current: No Pneumonia: Yes Thyroid Disease: No Tetanus Vaccination: > 5 Years Influenza Vaccination: No Menopausal: Yes : 8 Para: 3 Miscarriage: 2 : 3 Past Surgical History Abdominal Surgery: Yes (20# MESENTERIC TUMOR REMOVED WITH INCIDENTAL HYSTERECTOMY/OOPHRECTOMY) Appendectomy: Yes Section: Yes (1984) Eye Surgery: Yes (TUMOR BEHIND R-EYE REMOVED AGE 1) Gynecologic Surgery: Yes Hysterectomy: Yes Joint Replacement: Yes (BILATERAL KNEES) Other Surgery: Yes (GASTRIC BYPASS, HERNIA REPAIR WITH MESH, 03/17 mesh removal ) Social History Alcohol Use: Yes (daily) Tobacco Use: Yes (~1/2 PPD) Substance Use: No (HX of) Allergies-Medications (Allergen,Severity, Reaction): Coded Allergies: bee venom protein (honey bee) (Unverified Allergy, Severe, ANAPHYLAXIS, ) Reported Meds & Prescriptions Reported Meds & Active Scripts Active Zofran Odt (Ondansetron Odt) 4 Mg Tab 4 Mg SL Q6HR PRN Reported Valproic Acid 250 Mg Cap 250 Mg PO BID Depakote ER (Divalproex Sodium) 500 Mg Peter 1,000 Mg PO DAILY Ventolin Hfa 18 GM Inh (Albuterol Sulfate) 90 Mcg/Act Aer 2 Puff INH Q4-6H PRN Paxil (Paroxetine HCl) 40 Mg Tablet 40 Mg PO DAILY Review of Systems Except as stated in HPI: all other systems reviewed are Neg General / Constitutional: No: Fever, Chills HENT: No: Congestion Cardiovascular: No: Chest Pain or Discomfort, Palpitations Respiratory: No: Cough, Shortness of Breath Gastrointestinal: No: Nausea, Vomiting Genitourinary: No: Urgency, Frequency Musculoskeletal: No: Myalgias, Arthralgias Skin: No Rash, No Lumps Neurologic: No: Weakness Psychiatric: No: Anxiety Hematologic/Lymphatic: No: Lymph Node Enlargement Physical Exam Narrative GENERAL: Well-developed well-nourished female no acute distress or respiratory distress SKIN: Warm and dry. HEAD: Normocephalic. EYES: No scleral icterus. No injection or drainage. NECK: Supple, trachea midline. No JVD or lymphadenopathy. CARDIOVASCULAR: Regular rate and rhythm without murmurs, gallops, or rubs. RESPIRATORY: Breath sounds equal bilaterally. No accessory muscle use. GASTROINTESTINAL: Abdomen soft, non-tender, nondistended. MUSCULOSKELETAL: No cyanosis, or edema. BACK: Nontender without obvious deformity. No CVA tenderness. Data Data Last Documented VS Vital Signs Date Time Temp Pulse Resp B/P (MAP) Pulse Ox O2 Delivery O2 Flow Rate FiO2 11/25/17 01:16 87 17 97 11/25/17 00:25 Room Air 11/24/17 20:57 98.3 Orders Orders Complete Blood Count With Diff (11/24/17 21:56) Comprehensive Metabolic Panel (11/24/17 21:56) Lipase (11/24/17 21:56) Urinalysis - C+S If Indicated (11/24/17 21:56) Ct Abd/Pel W Iv Contrast(Rout) (11/24/17 21:56) Iv Access Insert/Monitor (11/24/17 21:56) Ecg Monitoring (11/24/17 21:56) Oximetry (11/24/17 21:56) Ondansetron Inj (Zofran Inj) (11/24/17 22:00) Sodium Chlor 0.9% 1000 Ml Inj (Ns 1000 M (11/24/17 21:56) Sodium Chloride 0.9% Flush (Ns Flush) (11/24/17 22:00) Valproic Acid (Depakene) (11/24/17 21:56) Iohexol 350 Inj (Omnipaque 350 Inj) (11/24/17 22:58) Potassium Chloride (Kcl) (11/24/17 23:15) Sodium Chlor 0.9% 1000 Ml Inj (Ns 1000 M (11/25/17 00:30) Ed Discharge Order (11/25/17 01:03) Labs Laboratory Tests Test 11/24/17 21:45 White Blood Count 10.1 TH/MM3 Red Blood Count 4.20 MIL/MM3 Hemoglobin 12.8 GM/DL Hematocrit 38.0 % Mean Corpuscular Volume 90.3 FL Mean Corpuscular Hemoglobin 30.5 PG Mean Corpuscular Hemoglobin Concent 33.8 % Red Cell Distribution Width 13.1 % Platelet Count 310 TH/MM3 Mean Platelet Volume 8.3 FL Neutrophils (%) (Auto) 55.1 % Lymphocytes (%) (Auto) 35.9 % Monocytes (%) (Auto) 6.3 % Eosinophils (%) (Auto) 0.7 % Basophils (%) (Auto) 2.0 % Neutrophils # (Auto) 5.6 TH/MM3 Lymphocytes # (Auto) 3.6 TH/MM3 Monocytes # (Auto) 0.6 TH/MM3 Eosinophils # (Auto) 0.1 TH/MM3 Basophils # (Auto) 0.2 TH/MM3 CBC Comment DIFF FINAL Differential Comment Urine Color YELLOW Urine Turbidity CLEAR Urine pH 6.5 Urine Specific [place] LESS/EQUAL 1.005 Urine Protein NEG mg/dL Urine Glucose (UA) NEG mg/dL Urine Ketones NEG mg/dL Urine Occult Blood MOD Urine Nitrite NEG Urine Bilirubin NEG Urine Urobilinogen 0.2 MG/DL Urine Leukocyte Esterase NEG Urine RBC 15-19 /hpf Urine WBC 0-2 /hpf Urine Squamous Epithelial Cells 0-5 /hpf Urine Bacteria NONE /hpf Microscopic Urinalysis Comment CULT NOT INDICATED Blood Urea Nitrogen 4 MG/DL Creatinine 0.50 MG/DL Random Glucose 95 MG/DL Total Protein 7.6 GM/DL Albumin 3.7 GM/DL Calcium Level 9.4 MG/DL Alkaline Phosphatase 120 U/L Aspartate Amino Transf (AST/SGOT) 15 U/L Alanine Aminotransferase (ALT/SGPT) 17 U/L Total Bilirubin 0.8 MG/DL Sodium Level 135 MEQ/L Potassium Level 3.3 MEQ/L Chloride Level 98 MEQ/L Carbon Dioxide Level 28.2 MEQ/L Anion Gap 9 MEQ/L Estimat Glomerular Filtration Rate 124 ML/MIN Lipase 35 U/L Valproic Acid (Depakene) Level 46 MCG/ML MDM Medical Decision Making Medical Screen Exam Complete: Yes Emergency Medical Condition: Yes Medical Record Reviewed: Yes Interpretation(s) UA: wnl Last Impressions Abdomen/Pelvis CT 11/24/172155 Signed Impressions: CONCLUSION: 1. No obstruction, acute inflammatory changes or other acute abnormality demon strated. 2. Stable chronic findings include hemangioma the left hepatic lobe, presumed adenoma the left adrenal gland, atherosclerotic aorta and gastric bypass change s. CBC & BMP Diagram 11/24/17 21:45 Total Protein 7.6, Albumin 3.7, Calcium Level 9.4, Alkaline Phosphatase 120 H, Aspartate Amino Transf (AST/SGOT) 15, Alanine Aminotransferase (ALT/SGPT) 17, Total Bilirubin 0.8 Vital Signs Date Time Temp Pulse Resp B/P (MAP) Pulse Ox O2 Delivery O2 Flow Rate FiO2 11/24/17 21:45 17 96 Room Air 11/24/17 20:57 98.3 83 16 165/73 (103) 97 Differential Diagnosis Vomiting gastroenteritis partial bowel obstruction foodborne illness electrolyte disturbance dehydration UTI sepsis Narrative Course At 12:14 AM patient feels clinically and symptomatically improved no further nausea no vomiting no abdominal pain or cramping lab values are found to be grossly within normal range except for mild hypokalemia that is replaced with oral potassium. Patient is taking oral hydration well tolerating ice chips without any recurrent nausea vomiting diarrhea or abdominal cramping. Vital signs are normal range. Patient is where CT abdomen pelvis reveals no acute abnormality and is desirous of being discharged home. Patient is stable for outpatient management with a prescription for Zofran and encouraged to add potassium containing foods and beverages to dietary intake Diagnosis Primary Impression: Gastroenteritis Additional Impressions: Dehydration Hypokalemia Referrals: Primary Care Physician 3 days Patient Instructions: General Instructions Additional Instructions: Increase fluid hydration Follow clear liquid diet for next 12-24 hours advance diet as tolerated to bland /brat diet and regular diet avoiding fried and fatty foods Take Zofran as prescribed as needed for nausea and/or vomiting Monitor temperature for fever take acetaminophen/Tylenol every 4 hours as needed for fever 100.4F or greater Follow-up with your primary care provider call office on Sunday to schedule follow-up appointment Return to the emergency department for any concerns or change in condition Med/Other Pt SpecificInfo: Prescription(s) given Scripts Ondansetron Odt (Zofran Odt) 4 Mg Tab 4 MG SL Q6HR Y for Nausea/Vomiting, #10 TAB 0 Refills Prov: Leena Mahoney MD 11/25/17 Disposition: 01 DISCHARGE HOME Condition: Stable Leena Mahoney MD November 24, 2017 23:13
[2017-11-24] MEDS ORDERED: POTASSIUM CHLORIDE 20 MEQ CONTROLLED RELEASE TAB PO ONE (23:15)
[2017-11-24 23:36] VITALS: BP 134/68; PULSE 103; RESP 17; O2SAT 96
[2017-11-25 00:25] VITALS: BP 156/74; PULSE 101; RESP 18; O2SAT 96
[2017-11-25] MEDS ORDERED: SODIUM CHLOR 0.9% 1000 ML INJ 1,000 ML IV ONE (00:30)
[2017-11-25] MEDS ORDERED: ZOFR4TAB3 SL (01:04)
== END 2017-11-25 01:20 | disposition home or self-care (01) ==
LOC: PHED 20:54
DX: K52.9 Noninfective gastroenteritis and colitis, unspecified (principal); E86.0 Dehydration; E87.6 Hypokalemia; F31.9 Bipolar disorder, unspecified; F41.9 Anxiety disorder, unspecified; J44.9 Chronic obstructive pulmonary disease, unspecified; K21.9 Gastro-esophageal reflux disease without esophagitis; F17.200 Nicotine dependence, unspecified, uncomplicated
CPT/HCPCS: 74177; 80053; 80164; 81001; 83690; 85025; 96361; 96374; 99285; J2405; J7030; Q9967

== ENCOUNTER 2018-02-04 12:49 | Inpatient (IN) ==
[2018-02-04] MEDS ORDERED: Sod Chloride 0.9% Inj 1,000 ML IV.SIG ONE ×2 (13:25→14:56)
[2018-02-04] MEDS ORDERED: Thiamine Inj 100 MG in Sodium Chlor 0.9% Inj 100 ML IV.SIG ONE (13:26)
--- NOTE | 2018-02-04 13:38 | ED ---
HPI General Chief complaint: Urogenital-Female Stated complaint: evac/diff urinating Time Seen by Provider: 02/04/18 13:10 Source: patient, family, EMS and RN notes reviewed Mode of arrival: EMS History of Present Illness HPI narrative: 62yF presenting with withdrawal. The patient states that she was a daily alcohol drinker until 5 days ago, when she went to [facility] drug and alcohol rehab. She says that she began to have severe withdrawal symptoms the night that she arrived, and the following day was asked to leave because she was unable to ambulate on her own. She was seen yesterday at [facility] and was told that they don't have inpatient rehab beds so she went home to her son's house. Her daughter in law states that she's been lying on the couch for the past day, has not gotten up at all, and has not urinated since approximately 7 PM yesterday. The patient reports chronic cough, nausea, and decreased urination. Her last drink was 5 days ago, is prescribed 25 mg Librium QID (last dose this morning). Related Data Home Medications Medication Instructions Recorded Confirmed albuterol sulfate [Ventolin HFA] 2 puff INHALATION Q4-6H PRN 02/04/18 02/04/18 divalproex 500 mg PO HS 02/04/18 02/04/18 hydroxyzine HCl 25 mg PO TID PRN 02/04/18 02/04/18 lurasidone [Latuda] 60 mg PO DAILY 02/04/18 02/04/18 mirabegron [Myrbetriq] 25 mg PO DAILY 02/04/18 02/04/18 ondansetron HCl 4 mg PO QID PRN 02/04/18 02/04/18 Allergies Allergy/AdvReac Type Severity Reaction Status Date / Time bee venom protein (honey bee) Allergy Severe ANAPHYLAXIS Verified 02/04/18 14:42 Review of Systems Except as stated in HPI: all other systems reviewed are negative Constitutional Reports chills and Reports fever(s) ENT Denies nasal congestion Cardiovascular Denies chest pain Respiratory Reports cough Gastrointestinal Reports nausea and Denies vomiting Genitourinary Comments: (+) decreased urination Musculoskeletal Denies back pain Neurologic Reports headache(s) PMFSH History History Provided By: Patient Medical History Medical History Alcoholic (Acute) Bipolar 1 disorder (Acute) GERD (gastroesophageal reflux disease) (Acute) Hx of hysterectomy (Acute) Surgical History Surgical History Hx of appendectomy (Acute) Hx of gastric bypass (Acute) Hx of hernia repair (Acute) Hx of total knee replacement (Acute) Social History Social History Substance History: No History of Abuse Second Hand Smoke Exposure: Yes Smoking Status: Current every day smoker Tobacco Type: Cigarettes How Often Do You Have a Drink Containing Alcohol: 4 or more times a week Recent Travel in [facility] within the Last 8 Weeks: No Recent Out of Country Travel within the Last 8 Weeks: No Immunization History Tetanus Immunization: Unsure Hx Influenza Vaccine This Season: No Exam Const General: no acute distress HENMT Head: normocephalic and atraumatic Face and sinus: normal facial exam Eyes General: appearance normal, both eyes and all related structures Pupils: PERRL Chest Chest: normal inspection of the chest Resp Effort & Inspection: normal respiratory effort Auscultation: no rhonchi and no wheezes Cardio Rate: tachycardic Rhythm: regular rhythm GI Inspection: non-distended Palpation: soft and nontender Other: Bedside US performed, bladder does not appear to be distended or over- distended Skin General: no rashes or lesions noted Neuro General: alert, awake and oriented x3 Other: Tremulous, non-diaphoretic No tongue fasciculations Answers questions slowly but appropriately Psych Affect: normal affect Other: No agitation, does not appear to be internally preoccupied Course Initial Documented Vital Signs Temperature 98.0 F 02/04/18 12:54 Pulse Rate 90 02/04/18 12:54 Respiratory Rate 17 02/04/18 12:54 Blood Pressure 98/51 L 02/04/18 12:54 Pulse Oximetry 92 L 02/04/18 12:54 Last Documented Vital Signs Temperature 98.0 F 02/04/18 12:54 Pulse Rate 83 02/04/18 14:13 Respiratory Rate 19 02/04/18 14:13 Blood Pressure 97/65 L 02/04/18 14:13 Pulse Oximetry 94 L 02/04/18 14:13 Medical Decision Making MDM Narrative Medical decision making narrative: Assessment: 62yF presenting with alcohol withdrawal, decreased urination, generalized weakness and inability to ambulate Plan: Labs IV fluids UA CXR Addendum: Labs show mild hypokalemia (repleted). Patient required straight cath for urine specimen collection and only produced ~30 cc of urine. Her workup is otherwise unremarkable. This patient cannot go home as she has failed outpatient management of acute alcohol withdrawal; she will need close monitoring and IV medications/ fluids. I discussed this plan with the patient and her [id number], who understand and agree. Case discussed with Dr. Giang of [facility]. Lab Data Lab results reviewed: Yes I reviewed the patient's lab results. Result diagrams: 02/04/18 13:47 02/04/18 13:47 Lab Results 02/04/18 02/04/18 02/04/18 Range/Units 13:47 13:47 13:47 CBC w Diff Auto diff final WBC 4.5 (4.0-11.0) th/mm3 RBC 3.99 L (4.00-5.30) mil/mm3 Hgb 12.1 (11.6-15.3) gm/dL Hct 37.7 (35.0-46.0) % MCV 94.3 (80.0-100.0) fL MCH 30.4 (27.0-34.0) pg MCHC 32.2 (32.0-36.0) % RDW 15.7 (11.6-17.2) % Plt Count 120 L (150-450) th/mm3 MPV 8.6 (7.0-11.0) fL Neut % (Auto) 62.4 (16.0-70.0) % Lymph % (Auto) 22.0 (9.0-44.0) % [place] % (Auto) 12.7 H (0.0-8.0) % Eos % (Auto) 1.4 (0.0-4.0) % Baso % (Auto) 1.5 (0.0-2.0) % Neut # (Auto) 2.7 (1.8-7.7) th/mm3 Lymph # (Auto) 1.0 (1.0-4.8) th/mm3 [place] # (Auto) 0.6 (0.0-0.9) th/mm3 Eos # (Auto) 0.1 (0.0-0.4) th/mm3 Baso # (Auto) 0.1 (0.0-0.2) th/mm3 WBC Differential . Differential Comment . Sodium 139 (136-145) meq/L Potassium 3.1 L (3.5-5.1) meq/L Chloride 98 (98-107) meq/L Carbon Dioxide 34.7 H (21.0-32.0) meq/L Anion Gap 6 (5-15) meq/L BUN 16 (7-18) mg/dL Creatinine 0.73 (0.50-1.00) mg/dL Estimated GFR 80 L (>89) mL/min Random Glucose 125 H (74-106) mg/dL Calcium 8.8 (8.5-10.1) mg/dL Magnesium 2.1 (1.5-2.5) mg/dL Total Bilirubin 0.7 (0.2-1.0) mg/dL AST 46 H (15-37) U/L ALT 48 (10-53) U/L Alkaline Phosphatase 91 (45-117) U/L Total Protein 6.2 L (6.4-8.2) g/dL Albumin 2.9 L (3.4-5.0) g/dL Lipase 33 L (73-393) U/L Ur Collection Type Urine Color (Yellw/Straw) Urine Clarity (Clear) Urine pH (5.0-8.5) Ur Specific [place] (1.002-1.035) Urine Protein (Neg-Trace) mg/dL Urine Glucose (UA) (Negative) mg/dL Urine Ketones (Negative) mg/dL Urine Occult Blood (Negative) Urine Nitrate (Negative) Urine Bilirubin (Negative) Urine Urobilinogen (Less than 2) mg/dL Ur Leukocyte Esterase (Negative) Urine RBC (0-3) /hpf Urine WBC (0-5) /hpf Urine WBC Clumps (None) Ur Squamous Epith Cells (0-5) /hpf Ur Transition Epith Cell (None) /hpf Amorphous Sediment (None) /hpf Urine Bacteria (None) /hpf Urine Mucus (Occasional) /lpf Micro UA Comment Urine Culture Comments Urine Collection Time hours Serum Alcohol Less than 3 (0-5) mg/dL 02/04/18 Range/Units 14:00 CBC w Diff WBC (4.0-11.0) th/mm3 RBC (4.00-5.30) mil/mm3 Hgb (11.6-15.3) gm/dL Hct (35.0-46.0) % MCV (80.0-100.0) fL MCH (27.0-34.0) pg MCHC (32.0-36.0) % RDW (11.6-17.2) % Plt Count (150-450) th/mm3 MPV (7.0-11.0) fL Neut % (Auto) (16.0-70.0) % Lymph % (Auto) (9.0-44.0) % [place] % (Auto) (0.0-8.0) % Eos % (Auto) (0.0-4.0) % Baso % (Auto) (0.0-2.0) % Neut # (Auto) (1.8-7.7) th/mm3 Lymph # (Auto) (1.0-4.8) th/mm3 [place] # (Auto) (0.0-0.9) th/mm3 Eos # (Auto) (0.0-0.4) th/mm3 Baso # (Auto) (0.0-0.2) th/mm3 WBC Differential Differential Comment Sodium (136-145) meq/L Potassium (3.5-5.1) meq/L Chloride (98-107) meq/L Carbon Dioxide (21.0-32.0) meq/L Anion Gap (5-15) meq/L BUN (7-18) mg/dL Creatinine (0.50-1.00) mg/dL Estimated GFR (>89) mL/min Random Glucose (74-106) mg/dL Calcium (8.5-10.1) mg/dL Magnesium (1.5-2.5) mg/dL Total Bilirubin (0.2-1.0) mg/dL AST (15-37) U/L ALT (10-53) U/L Alkaline Phosphatase (45-117) U/L Total Protein (6.4-8.2) g/dL Albumin (3.4-5.0) g/dL Lipase (73-393) U/L Ur Collection Type Cath Urine Color Yellow (Yellw/Straw) Urine Clarity Slightly cloudy (Clear) Urine pH 6.0 (5.0-8.5) Ur Specific [place] 1.025 (1.002-1.035) Urine Protein 30 H (Neg-Trace) mg/dL Urine Glucose (UA) Negative (Negative) mg/dL Urine Ketones Trace H (Negative) mg/dL Urine Occult Blood Negative (Negative) Urine Nitrate Negative (Negative) Urine Bilirubin Negative (Negative) Urine Urobilinogen 1.0 (Less than 2) mg/dL Ur Leukocyte Esterase Negative (Negative) Urine RBC 0-3 (0-3) /hpf Urine WBC 0-5 (0-5) /hpf Urine WBC Clumps Occasional H (None) Ur Squamous Epith Cells Greater than 10 H (0-5) /hpf Ur Transition Epith Cell 6-10 H (None) /hpf Amorphous Sediment Moderate H (None) /hpf Urine Bacteria Few H (None) /hpf Urine Mucus Few H (Occasional) /lpf Micro UA Comment Cath-culture ind Urine Culture Comments Cath-cult indicated Urine Collection Time 1400 hours Serum Alcohol (0-5) mg/dL Imaging Data Radiologist's impression: Chest X-Ray 02/04/18 13:25 CONCLUSION: Negative examination. ECG Data Attestation: I personally reviewed and interpreted this ECG as follows: Interpretation: Rate: 85 BPM Rhythm: Sinus [place]: Normal Intervals: Normal intervals, no blocks, QTc 397 ms Q waves: None T waves: Upright, no inversions ST segments: No elevations or depressions Impression: Non-specific EKG, no changes as compared to EKG from 02/13/2017. Discharge Plan Discharge Disposition Patient Disposition: 30 Still Patient Discharge Condition Condition: Stable Discharge Details Diagnosis: Alcohol withdrawal, Dehydration, Acute hypokalemia Physicians Team ED Provider: Clari Majano Primary Care Provider: Mia Guidry Rxs /Orders / Referrals /Forms Prescriptions: No Action ondansetron HCl 4 mg Tablet 4 mg PO QID PRN (Reason: Nausea) RF: 0 hydroxyzine HCl 25 mg Tablet 25 mg PO TID PRN (Reason: Anxiety) RF: 0 albuterol sulfate [Ventolin HFA] 90 mcg/actuation Hfa Aerosol Inhaler 2 puff INHALATION Q4-6H PRN (Reason: Shortness Of Breath) RF: 0 divalproex 250 mg Tablet Extended Release 24 Hr 500 mg PO HS RF: 0 mirabegron [Myrbetriq] 25 mg Tablet Extended Release 24 Hr 25 mg PO DAILY RF: 0 lurasidone [Latuda] 60 mg Tablet 60 mg PO DAILY RF: 0 Discharge Interventions Interventions: Vital Signs Last Done: 02/04/18 14:13 Status ED Status: With Doctor
--- NOTE | 2018-02-04 13:51 | XR ---
EXAM DATE: 02/04/2018 1:46 PM EDT AGE/SEX: 62 years / Female INDICATIONS: Short of breath. CLINICAL DATA: This is the patient's initial encounter. Patient reports that signs and symptoms have been present for 1 day and indicates a pain score of 1/10. MEDICAL/SURGICAL HISTORY: . Chronic obstructive pulmonary disease. Hiatal hernia. Gastroesophag eal reflux disease. Asthma. . Gastric bypass. Appendectomy. section. Hysterectomy. Hernia repair COMPARISON: [facility], RIBS LEFT(W PA CXR MIN 3VWS), 12/28/2016. . FINDINGS: A single AP view of the chest demonstrates the lungs to be symmetrically aerated without evidence of mass, infiltrate or effusion. The cardiomediastinal contours are unremarkable. Osseous structures a re intact. CONCLUSION: Negative examination. Electronically signed by: Julian Beltran MD 02/04/2018 1:50 PM EDT
[2018-02-04 14:05] LABS: Baso # (Auto) 0.1 th/mm3 (0.0-0.2); Baso % (Auto) 1.5 % (0.0-2.0); Eos # (Auto) 0.1 th/mm3 (0.0-0.4); Eos % (Auto) 1.4 % (0.0-4.0); Hematocrit 37.7 % (35.0-46.0); Hemoglobin 12.1 gm/dL (11.6-15.3); Mean Corpuscular HGB Conc 32.2 % (32.0-36.0); Mean Corpuscular Hemoglobin 30.4 pg (27.0-34.0); Mean Corpuscular Volume 94.3 fL (80.0-100.0); Mean Platelet Volume 8.6 fL (7.0-11.0); Mono # (Auto) 0.6 th/mm3 (0.0-0.9); Mono % (Auto) 12.7 % (0.0-8.0); Neut # (Auto) 2.7 th/mm3 (1.8-7.7); Neut % (Auto) 62.4 % (16.0-70.0); Platelet Count 120 th/mm3 (150-450); Red Blood Count 3.99 mil/mm3 (4.00-5.30); Red Cell Distribution Width 15.7 % (11.6-17.2); White Blood Count 4.5 th/mm3 (4.0-11.0)
[2018-02-04 14:12] LABS: Chloride 98 meq/L (98-107); Potassium 3.1 meq/L (3.5-5.1); Sodium 139 meq/L (136-145)
[2018-02-04 14:13] LABS: Clarity,Urine Slightly Cloudy (Clear); Color,Urine Yellow (Yellw/Straw); Glucose,Urine (UA) Negative (Negative); Leukocyte Esterase,Urine Negative (Negative); Nitrite,Urine Negative (Negative); Specific Gravity,Urine 1.025 (1.002-1.035)
[2018-02-04 14:16] LABS: Calcium 8.8 mg/dL (8.5-10.1)
[2018-02-04 14:17] LABS: Albumin 2.9 g/dL (3.4-5.0); Anion Gap 6 meq/L (5-15); Blood Urea Nitrogen 16 mg/dL (7-18); Carbon Dioxide 34.7 meq/L (21.0-32.0); Glucose,Random 125 mg/dL (74-106); Lipase 33 U/L (73-393); Magnesium 2.1 mg/dL (1.5-2.5)
[2018-02-04 14:19] LABS: Alanine Aminotransferase 48 U/L (10-53); Aspartate Aminotransferase 46 U/L (15-37)
[2018-02-04 14:20] LABS: Glomerular Filtration Rate 80 mL/min (>89)
[2018-02-04 14:20] LABS: Bilirubin,Urine Negative (Negative)
[2018-02-04 14:21] LABS: Collection Time,Urine 1400 hours
[2018-02-04 14:21] LABS: Total Protein 6.2 g/dL (6.4-8.2)
[2018-02-04 14:22] LABS: Alkaline Phosphatase 91 U/L (45-117)
[2018-02-04 14:24] LABS: Amorphous Sediment,Urine Moderate /hpf; Bacteria,Urine Few /hpf; Mucus,Urine Few /lpf (Occasional); RBC,Urine 0-3 /hpf (0-3); Squamous Epithelial Cell,Urine Greater than 10 /hpf (0-5); WBC,Urine 0-5 /hpf (0-5)
[2018-02-04] MEDS: Potassium Chlor 20 mEq Premix 20 MEQ/100 ML PIGGYBACK IV.SIG SCH ×2 (14:51→16:37)
[2018-02-04] MEDS ORDERED: Haloperidol Inj 5 MG/ML Ampul IV.PUSH PRN (15:20)
[2018-02-04] MEDS ORDERED: LORazepam 1 MG Tablet PO PRN (15:20)
[2018-02-04] MEDS: Sod Chloride 0.9% Inj 1,000 ML IV.CONT SCH (16:26)
[2018-02-04] MEDS: Multivitamin/Minerals Therapeutic Tablet PO SCH (16:37)
[2018-02-04] MEDS: Folic Acid 1 MG Tablet PO SCH (16:42)
--- NOTE | 2018-02-04 18:17 | P.HP ---
History of Present Illness Primary Care Physician: Mia Guidry Chief Complaint: Generalized weakness, unable to ambulate History of Present Illness: 62-year-old female with known history of alcohol abuse, bipolar disorder, tobacco abuse who presented to the emergency department for evaluation of altered mental status, hallucinations, generalized weakness, unable to ambulate. Patient has a long history of alcohol abuse and she decided to stop drinking alcohol 5 days ago. She did go to [facility] rehab in [place] Where she spent 4 days. Apparently she started developing generalized weakness, unable to care for herself, decreased ADL. Because the patient had been decreased function at the rehab facility. It was indicated that she was requested to leave because they are unable to care for her in that capacity. The family did take her to [facility] in [facility] for evaluation of her decreased level of consciousness, inability to care for herself, generalized weakness. Family indicates that there evaluated emergency department and discharged home. The patient was at home that she could not function on her own. Unable to feed herself, unable to ambulate, just laid on the couch without functioning. Started having visual hallucinations last. Noticing people fighting. Because of her continued symptoms and general debility patient was brought to the emergency department for evaluation. Patient had workup done and found to have mild abnormality with hypokalemia. Is recommended by the ER physician that the patient be admitted for further evaluation and management. Patient is alert and orientated. She does appear to be mildly lethargic. Falls asleep very easily. - Diagnosis (1) Alcohol withdrawal (2) Acute hypokalemia Inpatient Certification: I certify that the inpatient services were ordered in accordance with Medicare regulations governing the order. This includes certification that hospital inpatient services are reasonable and necessary and in the case of services not specified as inpatient-only under 42 CFR 419.22(n), that they are appropriately provided as inpatient services in accordance to with the 2-midnight benchmark under 43 CFR 412.3(e) Estimated Total Length of Stay (Days): 2 Plans for Post Hospital Care: Not yet determined Review of Systems All other systems reviewed negative except as stated in HPI Neurologic: Reports other visual disturbances, Reports tremor(s), Reports unsteadiness, Reports weakness PMFSH - History History Provided By: Patient - Medical History Medical History: Medical History (Last Reviewed 02/04/18 @ 13:42 by Clari Majano DO) Alcoholic Bipolar 1 disorder GERD (gastroesophageal reflux disease) Hx of hysterectomy - Surgical History Surgical History: Surgical History (Last Reviewed 02/04/18 @ 13:42 by Clari Majano DO) Hx of appendectomy Hx of gastric bypass Hx of hernia repair Hx of total knee replacement - Family History Family History: Family History (Last Updated 02/04/18 @ 17:49 by MAGEN Peters) Father History of cancer Sister History of diabetes mellitus - Tobacco History Second Hand Smoke Exposure: Yes Tobacco Use In Past 30 Days: Yes Smoking Status: Current every day smoker Tobacco Type: Cigarettes Packs Per Day: 1 (Patient was smoking 1 pack a day forever) - Alcohol History How Often Do You Have a Drink Containing Alcohol: 4 or more times a week - Substance Use History Substance History: No History of Abuse - Travel History Recent Travel in the [place] Within the Last 8 Weeks: No Recent Travel Out of the Country Within the Last 8 Weeks: No - Immunization History Tetanus Immunization: Unsure Hx Influenza Vaccine This Season: No Medications and Allergies Active Medications: Active Medications Albuterol (Ventolin Hfa Inh) 2 puff INH Q4H PRN PRN Reason: SHORTNESS OF BREATH Clonidine HCl (Catapres) 0.1 mg PO Q6H PRN PRN Reason: For SBP >/= 180, DBP >/= 100 Divalproex Sodium (Depakote Er) 500 mg PO HS KIKI Famotidine (Pepcid) 20 mg PO BID KIKI Flumazenil (Romazecon Inj) 0.2 mg IV.PUSH Q1M PRN PRN Reason: OVERSEDATION Folic Acid (Folic Acid) 1 mg PO DAILY [facility] Stop: 02/09/18 15:29 Last Admin: 02/04/18 16:42 Dose: 1 mg Haloperidol Lactate (Haldol Inj) 1 mg IV.PUSH Q15M PRN PRN Reason: for severe agitation Potassium Chloride (Kcl 20 Meq Premix Inj) 20 meq in 100 mls @ 50 mls/hr IV.SIG Q2H KIKI Stop: 02/04/18 18:59 Last Admin: 02/04/18 16:37 Dose: 50 mls/hr Sodium Chloride (Ns Inj) 1,000 mls @ 125 mls/hr IV.CONT .Q8H [facility] Last Admin: 02/04/18 16:26 Dose: 125 mls/hr Lorazepam (Ativan) 1 mg PO Q4H PRN PRN Reason: for CIWA 8-10 Last Admin: 02/04/18 17:38 Dose: 1 mg Lorazepam (Ativan) 2 mg PO Q2H PRN PRN Reason: for CIWA 11-14 Lorazepam (Ativan Inj) 2 mg IV.PUSH Q2H PRN PRN Reason: for CIWA 11-14 Lorazepam (Ativan Inj) 2 mg IV.PUSH Q1H PRN PRN Reason: for CIWA 15-20 Lorazepam (Ativan Inj) 2 mg IV.PUSH Q15M PRN PRN Reason: for CIWA > 20 Lorazepam (Ativan Inj) 1 mg IV.PUSH Q4H PRN PRN Reason: for CIWA 8-10 Lurasidone HCl (Latuda) 60 mg PO DAILY [facility] Multivitamins/Minerals (Theragran-M) 1 tab PO DAILY [facility] Stop: 02/09/18 15:29 Last Admin: 02/04/18 16:37 Dose: 1 tab Thiamine HCl (Vitamin B1) 100 mg PO DAILY [facility] Last Admin: 02/04/18 16:37 Dose: 100 mg Tolterodine Tartrate (Detrol La) 2 mg PO DAILY [facility] Allergies Allergy/AdvReac Type Severity Reaction Status Date / Time bee venom protein (honey bee) Allergy Severe ANAPHYLAXIS Verified 02/04/18 14:42 Home Medications Medication Instructions Recorded Confirmed Type albuterol sulfate [Ventolin HFA] 2 puff INHALATION Q4-6H PRN 02/04/18 02/04/18 History divalproex 500 mg PO HS 02/04/18 02/04/18 History hydroxyzine HCl 25 mg PO TID PRN 02/04/18 02/04/18 History lurasidone [Latuda] 60 mg PO DAILY 02/04/18 02/04/18 History mirabegron [Myrbetriq] 25 mg PO DAILY 02/04/18 02/04/18 History ondansetron HCl 4 mg PO QID PRN 02/04/18 02/04/18 History Exam Vital signs: Vital Signs 02/04/18 12:54 02/04/18 13:25 02/04/18 14:13 Temperature 98.0 F Pulse Rate 90 92 H 83 Respiratory Rate 17 19 Blood Pressure 98/51 L 97/65 L Pulse Oximetry 92 L 94 L 02/04/18 15:13 Temperature Pulse Rate 89 Respiratory Rate 19 Blood Pressure 102/53 L Pulse Oximetry 93 L Intake & Output 02/03/18 02/04/18 02/04/18 18:59 06:59 18:59 Intake Total 2200 Balance 2200 Weight 85.8 kg Intake: IV 2200 KCl 20 mEq Premix Inj 20 meq In 100 / 100 100 ml @ 50 mls/hr IV.SIG Q2H KIKI Rx#:[id number] NS Inj 1,000 ML @ Wide Open IV. 1999 SIG BOLUS ONE Rx#:[id number] Thiamine Inj 100 MG In NS Inj 101 / 101 100 ML @ 100 mls/hr IV.SIG ONCE ONE Rx#:[id number] Other: Weight On Admission 85.8 kg Narrative: GENERAL: Well-developed, well-nourished, in no acute distress. alert and orientated. Patient appears to be very lethargic HEENT: Head is normocephalic without any lesions or masses noted. Facial features are symmetric. Eyes: Pupils equal round reactive to light. Extraocular muscles are intact. Conjunctivae were clear. No horizontal nystagmus were appreciated oropharyngeal: Pharynx without any erythema edema. Tongue is midline without deviation. Buccal mucosa is moist without any masses or lesions NECK: Supple without any masses. Trachea midline no deviation. No JVD, no bruits are appreciated CARDIAC: Regular rhythm, regular rate. S1/S2 are heard. No murmurs gallops or rubs. LUNGS: Clear to auscultation bilaterally. No wheeze, rhonchi or rales. No use of accessory muscles on inspiration or expiration. ABDOMEN: Soft, nontender. Nondistended. Bowel sounds heard in all 4 quadrants. No organomegaly or masses. Negative rebound, negative guarding EXTREMITIES: No edema, pulses are equal bilaterally. No cyanosis or clubbing NEUROLOGY: Patient is lethargic, hypersomnolent. Cranial nerves II through XII grossly intact. Muscle strength 5/5 in upper and lower extremities bilaterally. Deep tendon reflexes are 2+ in upper and lower extremities bilaterally. Results - Labs CBC & Chem 7: 02/04/18 13:47 02/04/18 13:47 Labs: Laboratory Results - last 24 hr 0802/04/18 02/04/18 13:47 13:47 13:47 CBC w Diff Auto diff final WBC 4.5 RBC 3.99 L Hgb 12.1 Hct 37.7 MCV 94.3 MCH 30.4 MCHC 32.2 RDW 15.7 Plt Count 120 L MPV 8.6 Neut % (Auto) 62.4 Lymph % (Auto) 22.0 Terry % (Auto) 12.7 H Eos % (Auto) 1.4 Baso % (Auto) 1.5 Neut # (Auto) 2.7 Lymph # (Auto) 1.0 Terry # (Auto) 0.6 Eos # (Auto) 0.1 Baso # (Auto) 0.1 WBC Differential . Differential Comment . Sodium 139 Potassium 3.1 L Chloride 98 Carbon Dioxide 34.7 H Anion Gap 6 BUN 16 Creatinine 0.73 Estimated GFR 80 L POC Glucose Random Glucose 125 H Calcium 8.8 Magnesium 2.1 Total Bilirubin 0.7 AST 46 H ALT 48 Alkaline Phosphatase 91 Total Protein 6.2 L Albumin 2.9 L Lipase 33 L Ur Collection Type Urine Color Urine Clarity Urine pH Ur Specific [place] Urine Protein Urine Glucose (UA) Urine Ketones Urine Occult Blood Urine Nitrate Urine Bilirubin Urine Urobilinogen Ur Leukocyte Esterase Urine RBC Urine WBC Urine WBC Clumps Ur Squamous Epith Cells Ur Transition Epith Cell Amorphous Sediment Urine Bacteria Urine Mucus Micro UA Comment Urine Culture Comments Urine Collection Time Serum Alcohol Less than 3 02/04/18 02/04/18 14:00 17:07 CBC w Diff WBC RBC Hgb Hct MCV MCH MCHC RDW Plt Count MPV Neut % (Auto) Lymph % (Auto) [place] % (Auto) Eos % (Auto) Baso % (Auto) Neut # (Auto) Lymph # (Auto) Terry # (Auto) Eos # (Auto) Baso # (Auto) WBC Differential Differential Comment Sodium Potassium Chloride Carbon Dioxide Anion Gap BUN Creatinine Estimated GFR POC Glucose 92 Random Glucose Calcium Magnesium Total Bilirubin AST ALT Alkaline Phosphatase Total Protein Albumin Lipase Ur Collection Type Cath Urine Color Yellow Urine Clarity Slightly cloudy Urine pH 6.0 Ur Specific [place] 1.025 Urine Protein 30 H Urine Glucose (UA) Negative Urine Ketones Trace H Urine Occult Blood Negative Urine Nitrate Negative Urine Bilirubin Negative Urine Urobilinogen 1.0 Ur Leukocyte Esterase Negative Urine RBC 0-3 Urine WBC 0-5 Urine WBC Clumps Occasional H Ur Squamous Epith Cells Greater than 10 H Ur Transition Epith Cell 6-10 H Amorphous Sediment Moderate H Urine Bacteria Few H Urine Mucus Few H Micro UA Comment Cath-culture ind Urine Culture Comments Cath-cult indicated Urine Collection Time 1400 Serum Alcohol - Imaging Impressions Chest X-Ray 02/04/18 13:25 CONCLUSION: Negative examination. Caprini VTE Risk Assessment Caprini VTE Risk Assessment: Moderate/High Risk (score >= 2) Caprini Risk Assessment Model: Point Value = 1 Point Value = 2 Point Value = 3 Point Value = 5 Age 41-60 Minor surgery BMI > 25 kg/m2 Swollen legs Varicose veins or History of unexplained or recurrent spontaneous Oral contraceptives or hormone replacement Sepsis (< 1 month) Serious lung disease, including pneumonia (< 1 month) Abnormal pulmonary function Acute myocardial infarction Congestive heart failure (< 1 month) History of inflammatory bowel disease Medical patient at bed rest Age 61-74 Arthroscopic surgery Major open surgery (> 45 min) Laparoscopic surgery (> 45 min) Malignancy Confined to bed (> 72 hours) Immobilizing plaster cast Central venous access Age >= 75 History of VTE Family history of VTE Factor V Leiden Prothrombin [id number] Lupus anticoagulant Anticardiolipin antibodies Elevated serum homocysteine Heparin-induced thrombocytopenia Other congenital or acquired thrombophilia Stroke (< 1 month) Elective arthroplasty Hip, pelvis, or leg fracture Acute spinal cord injury (< 1 month) Prophylaxis Regimen: Total Risk Factor Score Risk Level Prophylaxis Regimen 0-1 Low Early ambulation 2 Moderate Order ONE of the following: *Sequential Compression Device (SCD) *Heparin 5000 units SQ BID 3-4 Higher Order ONE of the following medications: *Heparin 5000 units SQ TID *Enoxaparin/Lovenox 40 mg SQ daily (WT < 150 kg, CrCl > 30 mL/min) *Enoxaparin/Lovenox 30 mg SQ daily (WT < 150 kg, CrCl > 10-29 mL/min) *Enoxaparin/Lovenox 30 mg SQ BID (WT < 150 kg, CrCl > 30 mL/min) AND/OR *Sequential Compression Device (SCD) 5 or more Highest Order ONE of the following medications: *Heparin 5000 units SQ TID (Preferred with Epidurals) *Enoxaparin/Lovenox 40 mg SQ daily (WT < 150 kg, CrCl > 30 mL/min) *Enoxaparin/Lovenox 30 mg SQ daily (WT < 150 kg, CrCl > 10-29 mL/min) *Enoxaparin/Lovenox 30 mg SQ BID (WT < 150 kg, CrCl > 30 mL/min) AND *Sequential Compression Device (SCD) Assessment and Plan - Assessment (1) Alcohol withdrawal Code(s): F10.239 - Alcohol dependence with withdrawal, unspecified Status: Acute (2) Acute hypokalemia Code(s): E87.6 - Hypokalemia Status: Acute - Plan Alcohol withdrawal -Patient presents with significant lethargy, somnolence, weakness, unable to perform her ADLs -Very complex situation with patient trying to recover from alcoholism with acute alcohol withdrawal, patient also with medications for her bipolar disorder that can have enhanced response from medications for withdrawal. -[facility] protocol -Speech therapy and physical therapy evaluations -Seizure precautions -Continue folic acid, thiamine -Check thiamine and folic acid level, rule out Wernicke's encephalopathy -Check ammonia level -Clonidine as needed for elevated blood pressure -Discontinue Detrol at this time Hypokalemia -Continue monitor and replete as needed Chronic tobacco use -Patient counseled on cessation, patient does not wish to stop smoking at this time -Start nicotine patch Bipolar disorder -Home medication continued DVT prevention -Sequential compression devices
[2018-02-04] MEDS ORDERED: Divalproex 250 MG ER Tablet PO SCH (21:00)
[2018-02-04] MEDS: Divalproex 500 MG ER Tablet PO SCH (22:17)
[2018-02-04] MEDS: Famotidine 20 MG Tablet PO SCH (22:17)
[2018-02-05] MEDS: Sod Chloride 0.9% Inj 1,000 ML IV.CONT SCH ×3 (02:58→19:26)
[2018-02-05 06:47] LABS: Baso # (Auto) 0.2 th/mm3 (0.0-0.2); Baso % (Auto) 3.2 % (0.0-2.0); Eos # (Auto) 0.1 th/mm3 (0.0-0.4); Eos % (Auto) 1.6 % (0.0-4.0); Hematocrit 38.2 % (35.0-46.0); Hemoglobin 12.4 gm/dL (11.6-15.3); Lymph % (Auto) 46.5 % (9.0-44.0); Mean Corpuscular HGB Conc 32.5 % (32.0-36.0); Mean Corpuscular Hemoglobin 30.6 pg (27.0-34.0); Mean Platelet Volume 8.6 fL (7.0-11.0); Mono # (Auto) 0.7 th/mm3 (0.0-0.9); Mono % (Auto) 10.6 % (0.0-8.0); Neut # (Auto) 2.4 th/mm3 (1.8-7.7); Neut % (Auto) 38.1 % (16.0-70.0); Platelet Count 128 th/mm3 (150-450); Red Blood Count 4.07 mil/mm3 (4.00-5.30); Red Cell Distribution Width 16.1 % (11.6-17.2); White Blood Count 6.4 th/mm3 (4.0-11.0)
--- NOTE | 2018-02-05 08:36 | P.PN ---
Subjective Interval history: Follow-up alcohol withdrawal. Patient seen and examined sitting up in bed awake and alert. No tremors noted. Patient is oriented. Eating breakfast with no nausea, vomiting or abdominal pain. Patient does state she still feels weak but does feel improved. Awaiting PT eval today. Patient denies any chest pain, shortness of breath, headache, diarrhea or dysuria. Physical Exam Vital signs: Vital Signs 02/04/18 12:54 02/04/18 13:25 02/04/18 14:13 Temperature 98.0 F Pulse Rate 90 92 H 83 Respiratory Rate 17 19 Blood Pressure 98/51 L 97/65 L Pulse Oximetry 92 L 94 L 02/04/18 15:13 02/04/18 18:00 02/04/18 19:13 Temperature 97.5 F L Pulse Rate 89 88 87 Respiratory Rate 19 20 Blood Pressure 102/53 L 127/66 Pulse Oximetry 93 L 94 L 02/04/18 20:00 02/05/18 00:00 02/05/18 04:00 Temperature 98.9 F 96.9 F L 97.3 F L Pulse Rate 96 H 82 83 Respiratory Rate 18 20 20 Blood Pressure 106/54 L 108/57 L 127/56 L Pulse Oximetry 93 L 94 L 94 L 02/05/18 07:35 Temperature 97.9 F Pulse Rate 87 Respiratory Rate 20 Blood Pressure 130/60 Pulse Oximetry 93 L Intake & Output 02/04/18 02/05/18 02/05/18 18:59 06:59 18:59 Intake Total 2301 / 2301 1240 / 1240 Output Total 200 / 200 Balance 2301 / 2301 1040 / 1040 Weight 85.8 kg Intake: IV 2301 / 2301 1000 / 1000 NS Inj 1,000 ML @ 125 mls/hr IV 1000 / 1000 .CONT .Q8H KIKI Rx#:[id number] KCl 20 mEq Premix Inj 20 meq In 200 / 200 100 ml @ 50 mls/hr IV.SIG Q2H KIKI Rx#:[id number] NS Inj 1,000 ML @ Wide Open IV. 1999 SIG BOLUS ONE Rx#:[id number] Thiamine Inj 100 MG In NS Inj 101 / 101 100 ML @ 100 mls/hr IV.SIG ONCE ONE Rx#:[id number] Oral 240 / 240 Output: Urine 200 / 200 Other: Weight On Admission 85.8 kg Narrative: GENERAL: Well-developed, well-nourished awake and alert female patient in NAD. SKIN: Warm and dry. No rash. HEAD: Normocephalic. Atraumatic. EYES: Pupils equal and round. No scleral icterus. No injection or drainage. ENT: No nasal bleeding or discharge. Mucous membranes pink and moist. NECK: Supple. Trachea midline. CARDIOVASCULAR: Regular rate and rhythm. S1, S2 noted. 2/6 distant murmur heard best at right second intercostal space. RESPIRATORY: No accessory muscle use. Clear to auscultation. Breath sounds equal bilaterally. GASTROINTESTINAL: Abdomen soft, non-tender, nondistended. Normoactive bowel sounds x4. MUSCULOSKELETAL: No obvious deformities. Extremities without clubbing, cyanosis , or edema. NEUROLOGICAL: Awake and alert. No obvious cranial nerve deficits. Motor grossly within normal limits. 5/5 muscle strength in bilateral upper and lower extremities. Normal speech. PSYCHIATRIC: Appropriate mood and affect; insight and judgment normal. Results - Labs CBC & Chem 7: 02/05/18 06:15 02/04/18 13:47 Laboratory Results - last 24 hr 02/04/18 02/04/18 02/04/18 13:47 13:47 13:47 CBC w Diff Auto diff final WBC 4.5 RBC 3.99 L Hgb 12.1 Hct 37.7 MCV 94.3 MCH 30.4 MCHC 32.2 RDW 15.7 Plt Count 120 L MPV 8.6 Neut % (Auto) 62.4 Lymph % (Auto) 22.0 [place] % (Auto) 12.7 H Eos % (Auto) 1.4 Baso % (Auto) 1.5 Neut # (Auto) 2.7 Lymph # (Auto) 1.0 [place] # (Auto) 0.6 Eos # (Auto) 0.1 Baso # (Auto) 0.1 WBC Differential . Differential Comment . Sodium 139 Potassium 3.1 L Chloride 98 Carbon Dioxide 34.7 H Anion Gap 6 BUN 16 Creatinine 0.73 Estimated GFR 80 L POC Glucose Random Glucose 125 H Calcium 8.8 Magnesium 2.1 Total Bilirubin 0.7 AST 46 H ALT 48 Alkaline Phosphatase 91 Ammonia Total Protein 6.2 L Albumin 2.9 L Lipase 33 L Ur Collection Type Urine Color Urine Clarity Urine pH Ur Specific [place] Urine Protein Urine Glucose (UA) Urine Ketones Urine Occult Blood Urine Nitrate Urine Bilirubin Urine Urobilinogen Ur Leukocyte Esterase Urine RBC Urine WBC Urine WBC Clumps Ur Squamous Epith Cells Ur Transition Epith Cell Amorphous Sediment Urine Bacteria Urine Mucus Micro UA Comment Urine Culture Comments Urine Collection Time Serum Alcohol Less than 3 02/04/18 02/04/18 02/04/18 14:00 17:07 19:10 CBC w Diff WBC RBC Hgb Hct MCV MCH MCHC RDW Plt Count MPV Neut % (Auto) Lymph % (Auto) [place] % (Auto) Eos % (Auto) Baso % (Auto) Neut # (Auto) Lymph # (Auto) [place] # (Auto) Eos # (Auto) Baso # (Auto) WBC Differential Differential Comment Sodium Potassium Chloride Carbon Dioxide Anion Gap BUN Creatinine Estimated GFR POC Glucose 92 Random Glucose Calcium Magnesium Total Bilirubin AST ALT Alkaline Phosphatase Ammonia Less than 10 L Total Protein Albumin Lipase Ur Collection Type Cath Urine Color Yellow Urine Clarity Slightly cloudy Urine pH 6.0 Ur Specific [place] 1.025 Urine Protein 30 H Urine Glucose (UA) Negative Urine Ketones Trace H Urine Occult Blood Negative Urine Nitrate Negative Urine Bilirubin Negative Urine Urobilinogen 1.0 Ur Leukocyte Esterase Negative Urine RBC 0-3 Urine WBC 0-5 Urine WBC Clumps Occasional H Ur Squamous Epith Cells Greater than 10 H Ur Transition Epith Cell 6-10 H Amorphous Sediment Moderate H Urine Bacteria Few H Urine Mucus Few H Micro UA Comment Cath-culture ind Urine Culture Comments Cath-cult indicated Urine Collection Time 1400 Serum Alcohol 02/05/18 02/05/18 01:46 06:15 CBC w Diff Auto diff final WBC 6.4 RBC 4.07 Hgb 12.4 Hct 38.2 MCV 94.0 MCH 30.6 MCHC 32.5 RDW 16.1 Plt Count 128 L MPV 8.6 Neut % (Auto) 38.1 Lymph % (Auto) 46.5 H [place] % (Auto) 10.6 H Eos % (Auto) 1.6 Baso % (Auto) 3.2 H Neut # (Auto) 2.4 Lymph # (Auto) 3.0 [place] # (Auto) 0.7 Eos # (Auto) 0.1 Baso # (Auto) 0.2 WBC Differential . Differential Comment . Sodium Potassium Chloride Carbon Dioxide Anion Gap BUN Creatinine Estimated GFR POC Glucose 89 Random Glucose Calcium Magnesium Total Bilirubin AST ALT Alkaline Phosphatase Ammonia Total Protein Albumin Lipase Ur Collection Type Urine Color Urine Clarity Urine pH Ur Specific [place] Urine Protein Urine Glucose (UA) Urine Ketones Urine Occult Blood Urine Nitrate Urine Bilirubin Urine Urobilinogen Ur Leukocyte Esterase Urine RBC Urine WBC Urine WBC Clumps Ur Squamous Epith Cells Ur Transition Epith Cell Amorphous Sediment Urine Bacteria Urine Mucus Micro UA Comment Urine Culture Comments Urine Collection Time Serum Alcohol - Imaging Impressions Chest X-Ray 02/04/18 13:25 CONCLUSION: Negative examination. Assessment and Plan - Assessment (1) Alcohol withdrawal Code(s): F10.239 - Alcohol dependence with withdrawal, unspecified Status: Acute (2) Acute hypokalemia Code(s): E87.6 - Hypokalemia Status: Acute - Plan Alcohol withdrawal -Patient presents with significant lethargy, somnolence, weakness, unable to perform her ADLs. Patient is more awake today. -Very complex situation with patient trying to recover from alcoholism with acute alcohol withdrawal, patient also with medications for her bipolar disorder that can have enhanced response from medications for withdrawal. -CIWA protocol, 1 use of IV Ativan overnight. Otherwise no signs of withdrawal. -Speech therapy and physical therapy evaluations, awaiting input today. -Seizure precautions, continue to monitor closely. -Continue folic acid, thiamine. -Check thiamine and folic acid level, rule out Wernicke's encephalopathy, awaiting lab work. -Ammonia level normal. -Clonidine as needed for elevated blood pressure -Discontinue Detrol at this time Hypokalemia -K3.1 on presentation. Awaiting redraw today. Continue monitor and replete as needed Chronic tobacco use -Patient counseled on cessation, patient does not wish to stop smoking at this time -Start nicotine patch continue Bipolar disorder -Home medication continued DVT prevention -Sequential compression devices Discharge Planning: Awaiting clinical improvement, patient does have continued weakness. Awaiting physical therapy consultation today for evaluation and develop plan for discharge.
[2018-02-05] MEDS ORDERED: Tolterodine Tartrate LA 2 MG Capsule PO SCH (09:00)
[2018-02-05 09:02] LABS: Chloride 105 meq/L (98-107); Potassium 3.3 meq/L (3.5-5.1); Sodium 142 meq/L (136-145)
[2018-02-05 09:18] LABS: Anion Gap 5 meq/L (5-15); Blood Urea Nitrogen 11 mg/dL (7-18); Carbon Dioxide 31.6 meq/L (21.0-32.0); Glomerular Filtration Rate Greater Than 89 mL/min (>89); Glucose,Random 77 mg/dL (74-106)
[2018-02-05] MEDS: Multivitamin/Minerals Therapeutic Tablet PO SCH (09:50)
[2018-02-05] MEDS: Famotidine 20 MG Tablet PO SCH ×2 (09:50→20:35)
[2018-02-05] MEDS: Folic Acid 1 MG Tablet PO SCH (09:50)
[2018-02-05] MEDS: Divalproex 500 MG ER Tablet PO SCH (20:35)
--- NOTE | 2018-02-05 23:37 | ECG ---
Date Performed: 02/04/2018 Time Performed: 13:38:38 PTAGE: 62 years EKG: Sinus rhythm NORMAL ECG PREVIOUS TRACING : 02/13/2017 11.42 Since the previous tracing, no significant change noted DOCTOR: Shin Berg Interpretating Date/Time 02/05/2018 23:36:01
[2018-02-06] MEDS: Sod Chloride 0.9% Inj 1,000 ML IV.CONT SCH (05:34)
--- NOTE | 2018-02-06 08:27 | P.DS ---
Date of admission: 02/04/18 15:10 Primary care physician: Mia Guidry Brief History from admission: 62-year-old female with known history of alcohol abuse, bipolar disorder, tobacco abuse who presented to the emergency department for evaluation of altered mental status, hallucinations, generalized weakness, unable to ambulate. Patient has a long history of alcohol abuse and she decided to stop drinking alcohol 5 days ago. She did go to [facility] rehab in [facility] Where she spent 4 days. Apparently she started developing generalized weakness, unable to care for herself, decreased ADL. Because the patient had been decreased function at the rehab facility. It was indicated that she was requested to leave because they are unable to care for her in that capacity. The family did take her to [facility] in [facility] for evaluation of her decreased level of consciousness, inability to care for herself, generalized weakness. Family indicates that there evaluated emergency department and discharged home. The patient was at home that she could not function on her own. Unable to feed herself, unable to ambulate, just laid on the couch without functioning. Started having visual hallucinations last. Noticing people fighting. Because of her continued symptoms and general debility patient was brought to the emergency department for evaluation. Patient had workup done and found to have mild abnormality with hypokalemia. Is recommended by the ER physician that the patient be admitted for further evaluation and management. Patient is alert and orientated. She does appear to be mildly lethargic. Falls asleep very easily. DS: Diagnosis - Discharge Diagnosis (1) Alcohol withdrawal Status: Acute (2) Acute hypokalemia Status: Acute DS: Medications - Discharge Medications Prescriptions: folic acid 1 mg PO DAILY 30 Days #30 tab thiamine HCl (vitamin B1) 100 mg PO DAILY 30 Days #30 tab DS: Summary Hospital Course: Patient presented with alcohol withdrawal symptoms of significant lethargy, somnolence, weakness and inability to perform ADLs. Very complex situation with patient trying to recover from alcoholism with acute alcohol withdrawal, patient is also on medications for bipolar disorder which may have enhanced response from medications for withdrawal. Patient was placed on CIWA protocol, and uses Ativan as needed. Patient did very well. Speech therapy assessed patient during hospitalization with no further recommendations and regular diet thin liquids. Physical therapy evaluated patient during hospitalization with recommendations to rehab. Patient was placed on seizure precautions, monitor closely. Started on folic acid and thiamine. Ammonia level was normal during hospitalization. Patient was hypokalemic with a potassium of 3.1 on presentation. This was replaced and normal upon discharge. Patient does have chronic tobacco abuse, was counseled on cessation and patient does not wish to stop smoking at this time. A nicotine patch was ordered while patient was hospitalized. Patient has a history of bipolar disorder, home medications were continued. Patient was stable for discharge, patient will be followed by her PCP. - Time Spent with Patient Total time spent providing and/or coordinating discharge services: Greater than 30 minutes - Quality: VTE Deep Vein Thrombosis/Pulmonary Embolism Present on Admission: No Exam Vital signs: Vital Signs 02/05/18 11:12 02/05/18 15:29 02/05/18 20:00 Temperature 98.7 F 97.8 F 96.2 F L Pulse Rate 80 85 82 Respiratory Rate 20 20 20 Blood Pressure 110/56 L 114/58 L 121/59 L Pulse Oximetry 93 L 93 L 99 02/05/18 20:45 02/06/18 00:00 02/06/18 02:30 Temperature 96.8 F L Pulse Rate 83 Respiratory Rate 16 Blood Pressure 134/64 Pulse Oximetry 98 94 L 99 Intake & Output 02/05/18 02/06/18 02/06/18 18:59 06:59 18:59 Intake Total 1840 / 1840 3500 / 3500 Output Total 300 / 300 600 / 600 Balance 1540 / 1540 2900 / 2900 Weight 85.8 kg Intake: IV 1000 / 1000 1000 / 1000 NS Inj 1,000 ML @ 75 mls/hr IV. 1000 / 1000 1000 / 1000 CONT .[id number] [facility] Rx#: [id number] Oral 840 / 840 2500 / 2500 Output: Urine 300 / 300 600 / 600 Narrative: GENERAL: Well-developed, well-nourished patient in [facility]. SKIN: Warm and dry. No rash. HEAD: Normocephalic. Atraumatic. EYES: Pupils equal and round. No scleral icterus. No injection or drainage. ENT: No nasal bleeding or discharge. Mucous membranes pink and moist. NECK: Supple. Trachea midline. CARDIOVASCULAR: Regular rate and rhythm. S1, S2 noted. No murmur appreciated. RESPIRATORY: No accessory muscle use. Clear to auscultation. Breath sounds equal bilaterally. GASTROINTESTINAL: Abdomen soft, non-tender, nondistended. Normoactive bowel sounds x4. MUSCULOSKELETAL: No obvious deformities. Extremities without clubbing, cyanosis , or edema. NEUROLOGICAL: Awake and alert. No obvious cranial nerve deficits. Motor grossly within normal limits. 5/5 muscle strength in bilateral upper and lower extremities. Normal speech. PSYCHIATRIC: Appropriate mood and affect; insight and judgment normal. Results Procedures completed during hospitalization: None. Labs on day of discharge: Labs from last 24 hours 02/05/18 02/05/18 02/05/18 20:39 08:15 08:15 Sodium 142 Potassium 3.3 L Chloride 105 Carbon Dioxide 31.6 Anion Gap 5 BUN 11 Creatinine 0.46 L Estimated GFR Greater than 89 POC Glucose 129 H Random Glucose 77 Calcium 8.0 L D Thiamine Pending Preliminary micro results at discharge 02/04/18 14:00 Urine Culture - Preliminary Catheterized Urine Immature growth - reincubate - Impressions ITS Impressions Chest X-Ray 02/04/18 13:25 CONCLUSION: Negative examination. Discharge Plan - Discharge Disposition Patient Disposition: Discharge to SNF - Discharge Condition Condition: Stable - Discharge Order Discharge Orders: Discharge Order (Routine); Ordered 02/06/18 Ordered By: Hien Lobato - Discharge Details Anticipated Discharge Date: 02/06/18 Discharge Comment: Ok to DC to SNF when arrangements made. - Physicians Team Primary Care Provider: Mia Guidry Attending Provider: Minal Giang
[2018-02-06] MEDS: Multivitamin/Minerals Therapeutic Tablet PO SCH (08:58)
[2018-02-06] MEDS: Folic Acid 1 MG Tablet PO SCH (08:59)
[2018-02-06] MEDS: Famotidine 20 MG Tablet PO SCH ×2 (08:59→20:21)
[2018-02-06] MEDS: Divalproex 500 MG ER Tablet PO SCH (20:21)
--- NOTE | 2018-02-07 08:49 | P.PN ---
Subjective Interval history: Follow-up alcohol withdrawal. Patient seen and examined, lying in bed comfortably awake and alert. States she is much improved, feels at her baseline. No acute events overnight. To Rehab today. Physical Exam Vital signs: Vital Signs 02/06/18 12:00 02/06/18 16:00 02/06/18 20:00 Temperature 97.8 F 96.8 F L 97.5 F L Pulse Rate 76 89 72 Respiratory Rate 18 18 16 Blood Pressure 109/63 131/81 126/61 Pulse Oximetry 97 100 100 02/06/18 20:30 02/07/18 00:00 02/07/18 07:45 Temperature 97.3 F L Pulse Rate 68 Respiratory Rate 16 Blood Pressure 126/67 Pulse Oximetry 96 97 98 Intake & Output 02/06/18 02/07/18 02/07/18 18:59 06:59 18:59 Intake Total 300 / 300 1100 / 1100 Output Total 1300 / 1300 Balance 300 / 300 -200 / -200 Weight 86 kg Intake: IV 300 / 300 NS Inj 1,000 ML @ 75 mls/hr IV. 300 / 300 CONT .[id number] [facility] Rx#: [id number] Oral 1100 / 1100 Output: Urine 1300 / 1300 Other: # Urine Diapers 1 # Bowel Movements 1 Narrative: GENERAL: Well-developed, well-nourished awake and alert female patient in [facility]. SKIN: Warm and dry. No rash. HEAD: Normocephalic. Atraumatic. EYES: Pupils equal and round. No scleral icterus. No injection or drainage. ENT: No nasal bleeding or discharge. Mucous membranes pink and moist. NECK: Supple. Trachea midline. CARDIOVASCULAR: Regular rate and rhythm. S1, S2 noted. 2/6 distant murmur heard best at right second intercostal space. RESPIRATORY: No accessory muscle use. Clear to auscultation. Breath sounds equal bilaterally. GASTROINTESTINAL: Abdomen soft, non-tender, nondistended. Normoactive bowel sounds x4. MUSCULOSKELETAL: No obvious deformities. Extremities without clubbing, cyanosis , or edema. NEUROLOGICAL: Awake and alert. No obvious cranial nerve deficits. Motor grossly within normal limits. 5/5 muscle strength in bilateral upper and lower extremities. Normal speech. PSYCHIATRIC: Appropriate mood and affect; insight and judgment normal. Results - Labs CBC & Chem 7: 02/05/18 06:15 02/06/18 12:00 Laboratory Results - last 24 hr 02/06/18 02/06/18 12:00 22:59 Potassium 4.2 D POC Glucose 89 Microbiology 02/04/18 14:00 Catheterized Urine Urine Culture - Final 50-100,000 cfu/mL mixed gram positive eladio (probable contaminants) - Procedures None. Assessment and Plan - Assessment (1) Alcohol withdrawal Code(s): F10.239 - Alcohol dependence with withdrawal, unspecified Status: Acute (2) Acute hypokalemia Code(s): E87.6 - Hypokalemia Status: Acute - Plan Alcohol withdrawal -Patient presents with significant lethargy, somnolence, weakness, unable to perform her ADLs. Patient is more awake today. -Very complex situation with patient trying to recover from alcoholism with acute alcohol withdrawal, patient also with medications for her bipolar disorder that can have enhanced response from medications for withdrawal. -CIWA protocol, no acute events overnight. Otherwise no signs of withdrawal. -Speech therapy and physical therapy evaluations, regular diet thin liquids. -Seizure precautions, continue to monitor closely. -Continue folic acid, thiamine. -Ammonia level normal. -Clonidine as needed for elevated blood pressure. -Discontinue Detrol at this time. Hypokalemia -K3.1 on presentation. Replaced with extra supplementation today. DCd home with supplementation as ordered. Chronic tobacco use -Patient counseled on cessation, patient does not wish to stop smoking at this time. Bipolar disorder -Home medication continued. DVT prevention -Sequential compression devices Discharge Planning: DC to rehab today.
[2018-02-07] MEDS: Folic Acid 1 MG Tablet PO SCH (09:34)
[2018-02-07] MEDS: Multivitamin/Minerals Therapeutic Tablet PO SCH (09:34)
[2018-02-07] MEDS: Famotidine 20 MG Tablet PO SCH (09:35)
[2018-02-07 09:37] VITALS: RESP 17
[2018-02-07 16:02] VITALS: BP 138/76; PULSE 82; TEMP 97; O2SAT 98
== END 2018-02-07 17:50 ==
LOC: PHED 12:49 → PHEDA 15:10 → PH3 16:29
PROVIDERS: ADMIT Hospitalist; ATTEND Hospitalist